=== PATIENT | female | born 1970 | race Caucasian/White ===

== ENCOUNTER 2020-07-01 10:58 | Emergency (ER) | payer OTHER, SELFPAY ==
--- NOTE | ~2020-07-01 | XR_ITS ---
EXAMINATION: XR chest 1V portable 07/01/2020 11:40 INDICATION: Cough PROCEDURE: AP portable chest COMPARISON: No prior studies for comparison. FINDINGS: The lungs are clear. The cardiomediastinal silhouette is within normal limits. There are no pleural effusions. There is no pneumothorax suspected. IMPRESSION: 1: NO ACUTE CARDIOPULMONARY DISEASE. Reviewed, dictated and finalized at location B. 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
[2020-07-01 11:11] VITALS: BP 137/83; PULSE 94; RESP 18; TEMP 36.4; O2SAT 100
--- NOTE | 2020-07-01 11:53 | ED.GENADULT ---
HPI - General Adult General Chief complaint: Upper Respiratory Infection <Jaren Dalton PA-C - Last Filed: 07/01/20 12:08> Stated complaint: Sick for a week COVID - maybe sinus <TAMARA Campos Last Filed: 07/01/20 12:08> Time Seen by Provider: 07/01/20 11:20 <Jaren Dalton PA-C - Last Filed: 07/01/20 12:08> Source: patient <TAMARA Campos Last Filed: 07/01/20 12:08> Mode of arrival: ambulatory <TAMARA Campos Last Filed: 07/01/20 12:08> Limitations: no limitations <TAMARA Campos Last Filed: 07/01/20 12:08> History of Present Illness HPI narrative: Patient presents with chief complaint of sinus pain, congestion in dark green discharge over the past 2 weeks. Patient states she has noticed some improvement when she takes sinus pills however states she has been taking them for 2 weeks she feels that there is something further going on causing her symptoms. Patient states she has tested negative for Covid twice over the past 2 weeks. She reports she does have slight cough on occasion. Patient denies fever, chills, nausea, vomiting, diarrhea. Patient denies any other emergent symptoms. <Jaren Dalton PA-C - Last Filed: 07/01/20 12:08> Related Data Allergies/adverse reactions: Allergies Allergy/AdvReac Type Severity Reaction Status Date / Time No Known Allergies Allergy Verified 07/01/20 11:19 <Jaren Dalton PA-C - Last Filed: 07/01/20 12:08> Review of Systems Review of Systems: Narrative: CONSTITUTIONAL: Denies fever, chills, or sweats. EYES: Denies visual changes, redness, or discharge. ENT: Reports sinus pain, congestion, sinus drainage denies rhinorrhea, sore throat, or otalgia. CARDIOVASCULAR: Denies chest pain, palpitations, or edema. RESPIRATORY: Reports intermittent dry cough denies dyspnea. GASTROINTESTINAL: Denies abdominal pain, nausea, vomiting, or diarrhea. GENITOURINARY: Denies dysuria or hematuria. SKIN: Denies rash or itching. MUSCULOSKELETAL: Denies back pain, myalgia, or joint pain NEUROLOGIC: Denies headache, numbness, dizziness, or weakness. PSYCHIATRIC: Denies anxiety or depression. <Jaren Dalton PA-C - Last Filed: 07/01/20 12:08> Exam Narrative: Exam Narrative: GENERAL: Well-appearing, well-nourished, and in no acute distress. HEAD: Normocephalic, atraumatic. EYES: PERRLA and EOMI. ENT: Mucous membranes moist. Oropharynx without tonsillar hypertrophy exudate or other lesions. Bilateral TMs pearly sepulveda nonbulging. Maxillary sinus tenderness to palpation. Sinuses inflamed and irritated. The green discharge noted to the nasal cavities. NECK: Supple. No adenopathy or masses. No carotid bruits or JVD CHEST: Clear to auscultation. No respiratory distress. No wheezes rales or rhonchi HEART: Regular rate and rhythm. No murmur heard. Normal peripheral pulses. ABDOMEN: Soft, nontender, nondistended, normal active bowel sounds. EXTREMITIES: Normal range of motion. No edema. SKIN: Warm, dry, no rash. NEURO: No focal deficits. Alert and oriented x3. PSYCH: Normal mood and affect. <Jaren Dalton PA-C - Last Filed: 07/01/20 12:08> Course Vital Signs Vital signs: Vital Signs Temperature 97.6 F 07/01/20 11:11 Pulse Rate 94 07/01/20 11:11 Respiratory Rate 18 07/01/20 11:11 Blood Pressure 137/83 07/01/20 11:11 Pulse Oximetry 100 07/01/20 11:11 Temperature 97.6 F 07/01/20 11:11 Pulse Rate 94 07/01/20 11:11 Respiratory Rate 18 07/01/20 11:11 Blood Pressure 137/83 07/01/20 11:11 Pulse Oximetry 100 07/01/20 11:11 <Jaren Dalton PA-C - Last Filed: 07/01/20 12:08> Vital Signs Temperature 97.6 F 07/01/20 11:11 Pulse Rate 94 07/01/20 11:11 Respiratory Rate 18 07/01/20 11:11 Blood Pressure 137/83 07/01/20 11:11 Pulse Oximetry 100 07/01/20 11:11 Temperature 97.6 F 07/01/20 11:11 Pulse Rate 94 07/01/20 11:11 Respiratory Rate 18 12/
== END 2020-07-01 12:28 | disposition home or self-care (01) ==
PROVIDERS: Emergency Provider General Practice
DX: J01.00 Acute maxillary sinusitis, unspecified (principal)
CPT/HCPCS: 71045; 99283

== ENCOUNTER 2020-07-17 13:22 | Emergency (ER) | payer OTHER, SELFPAY ==
--- NOTE | ~2020-07-17 | XR_ITS ---
XR foot LT min 3V 07/17/2020 14:20 INDICATION: Left foot pain PROCEDURE: 4 views left foot COMPARISON: No prior studies for comparison. FINDINGS: Fracture, dislocation or subluxation is not identified. Lisfranc joint intact. The soft tis sues appear within normal limits. No foreign bodies are identified. IMPRESSION: 1: NO ACUTE BONE OR JOINT ABNORMALITY IDENTIFIED. Reviewed, dictated and finalized at location A. METRIC TECHNOLOGIST
[2020-07-17 13:30] VITALS: BP 133/78; PULSE 83; RESP 16; TEMP 36; O2SAT 98
--- NOTE | 2020-07-17 14:18 | ED.GENADULT ---
HPI - General Adult General Chief complaint: Extremity Problem,Nontraumatic Stated complaint: L HEEL PAIN, VAG D/C Time Seen by Provider: 07/17/20 13:50 Source: patient Mode of arrival: ambulatory Limitations: no limitations History of Present Illness HPI narrative: 50 years old white female complaining of pain at the left heel and the bottom of the left foot started 2 to 3 weeks ago. 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 Patient denies any trauma. The pain is burning, gradual onset, medial side of the heel. Patient also complaining of vaginal discharge consistent with her previous history of bacterial vaginosis. Patient declined any vaginal exam. She would like a course of antibiotic to take care of the infection. Patient denies any fever, chills, nausea, vomiting. Related Data Home Medications Medication Instructions Recorded Confirmed folic acid 07/17/20 Allergies Allergy/AdvReac Type Severity Reaction Status Date / Time No Known Allergies Allergy Verified 07/17/20 14:09 Review of Systems Review of Systems: Narrative: CONSTITUTIONAL: Denies fever, chills, or sweats. EYES: Denies visual changes, redness, or discharge. ENT: Denies rhinorrhea, congestion, sore throat, or otalgia. CARDIOVASCULAR: Denies chest pain, palpitations, or edema. RESPIRATORY: Denies cough or dyspnea. GASTROINTESTINAL: Denies abdominal pain, nausea, vomiting, or diarrhea. GENITOURINARY: Denies dysuria or hematuria. SKIN: Denies rash or itching. MUSCULOSKELETAL: Denies back pain, joint pain, or myalgia. NEUROLOGIC: Denies headache, numbness, or weakness. PSYCHIATRIC: Denies anxiety or depression. [facility] Past Medical History Medical History (Updated 07/17/20 @ 14:30 by Chucho Baez MD) Obesity Social History Social History Gender identity (if verbalized by the patient): Female Exam Narrative: Exam Narrative: General appearance: Well-developed, well-nourished Skin: Normal color Chest and respiratory: Airway patent, no respiratory distress, no accessory muscle use Heart: Regular rate/rhythm Abdomen: Soft, nontender, no organomegaly, quiet bowel sounds Vascular: Normal peripheral pulses, normal capillary refill. Musculoskeletal: Left foot showed no abnormality, severe tenderness at the heel area mainly at the medial side of the calcaneus, no bruises, no swelling, no rash. No deformity. Neurologic: Alert and oriented ?3, SERVICE AGENT is normal as tested, no gross motor deficit Course Course Emergency Course: Stable Vital Signs Vital signs: Vital Signs Temperature 36.0 C L 07/17/20 13:30 Pulse Rate 83 07/17/20 13:30 Respiratory Rate 16 07/17/20 13:30 Blood Pressure 133/78 07/17/20 13:30 Pulse Oximetry 98 07/17/20 13:30 Temperature 36.0 C L 07/17/20 13:30 Pulse Rate 83 07/17/20 13:30 Respiratory Rate 16 07/17/20 13:30 Blood Pressure 133/78 07/17/20 13:30 Pulse Oximetry 98 07/17/20 13:30 Medical Decision Making MDM Narrative Medical decision making narrative: Plantar fasciitis is my concern. Patient also complaining of vaginal discharge consistent with her previous history of bacterial vaginosis. Also telling me that she have cottage cheese discharge which could be candidiasis. The plan to treat both. Differential Diagnosis Differential Diagnosis: Plantar fasciitis, left foot sprain/strain, bacterial vaginosis, candidiasis/vagina. Vital Signs Vital Signs: Vital Signs Temperature 36.0 C L 07/17/20 13:30 Pulse Rate 83 07/17/20 13:30 Respiratory Rate 16 07/17/20 13:30 Blood Pressure 133/78 07/17/20 13:30 Pulse Oximetry 98 07/17/20 13:30 Temperature 36.0 C L 07/17/20 13:30 Pulse Rate 83 07/17/20 13:30
[2020-07-17 14:53] VITALS: BP 148/98; PULSE 94; RESP 16; TEMP 37.3; O2SAT 98
== END 2020-07-17 14:56 | disposition home or self-care (01) ==
PROVIDERS: Emergency Provider Emergency Medicine
DX: M72.2 Plantar fascial fibromatosis (principal); N76.0 Acute vaginitis; E66.9 Obesity, unspecified; Z68.33 Body mass index [BMI] 33.0-33.9, adult
CPT/HCPCS: 73630; 99283

== ENCOUNTER 2020-09-20 13:13 | Emergency (ER) | payer OTHER, SELFPAY ==
--- NOTE | ~2020-09-20 | CT_ITS ---
EXAMINATION: CT brain wo con INDICATION: Frontal headache COMPARISON: None TECHNIQUE: Standard unenhanced head CT. The dose-length product (DLP) was 605.33 mGy-cm. The mA was a djusted according to patient size. Iterative reconstruction technique was employed. FINDINGS: There is no intracranial hemorrhage, acute infarction, or abnormal mass lesion. The ventric les are normal. There is no abnormal mass effect or midline shift. The sepulveda-white matter differentiat ion is normal. The basal cisterns are patent. The orbits are normal. The paranasal sinuses, mastoids and calvarium are normal. IMPRESSION: 1. No acute intracranial abnormality. Reviewed, dictated and finalized at location A. UATE ADVISOR
[2020-09-20 13:20] VITALS: BP 129/75; PULSE 71; RESP 18; TEMP 36.2; O2SAT 99
--- NOTE | 2020-09-20 13:38 | ED.GENADULT ---
HPI - General Adult General Chief complaint: Headache Stated complaint: headache, arm numbness Time Seen by Provider: 09/20/20 13:19 Source: patient Mode of arrival: ambulatory Limitations: no limitations History of Present Illness HPI narrative: Patient wok-up 1 hour ago from sleep with left frontal headache, left neck pain and left upper extremity numbness. The numbness resolved in few minutes, but patient still having pain at left forehead and left side of neck. Patient received aspirin at home prior to arrival. Patient denies any nausea, vomiting, vision change, chest pain, shortness of breath, back pain. Patient also complaining of left lower dental pain for the last few days and slightly swollen. 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 Related Data Allergies Allergy/AdvReac Type Severity Reaction Status Date / Time No Known Allergies Allergy Verified 09/20/20 13:24 Review of Systems Review of Systems: Narrative: CONSTITUTIONAL: Denies fever, chills, or sweats. EYES: Denies visual changes, redness, or discharge. ENT: Denies rhinorrhea, congestion, sore throat, or otalgia. CARDIOVASCULAR: Denies chest pain, palpitations, or edema. RESPIRATORY: Denies cough or dyspnea. GASTROINTESTINAL: Denies abdominal pain, nausea, vomiting, or diarrhea. GENITOURINARY: Denies dysuria or hematuria. SKIN: Denies rash or itching. MUSCULOSKELETAL: Denies back pain, joint pain, or myalgia. NEUROLOGIC: Denies headache, numbness, or weakness. PSYCHIATRIC: Denies anxiety or depression. PMFSH Past Medical History Medical History Obesity Social History Social History Gender identity (if verbalized by the patient): Female Exam Narrative: Exam Narrative: General appearance: Well-developed, well-nourished Skin: Normal color Head: Normocephalic, nontraumatic Eyes: Clear conjunctiva ENT: Oropharynx normal, ears normal, nose normal, left lower gum showed 2 broken teeth surrounded with erythematous swelling gum, no abscess Neck: Supple, slight tenderness left side of neck, no mass, no lymphadenopathy, no rash, no swelling. Chest and respiratory: Airway patent, no respiratory distress, no accessory muscle use Heart: Regular rate/rhythm Abdomen: Soft, nontender, no organomegaly, quiet bowel sounds Vascular: Normal peripheral pulses, normal capillary refill. Musculoskeletal: Normal range of motion, nontender back Neurologic: Alert and oriented ?3, CLIENT SERVER DEVELOPER is normal as tested, no gross motor deficit Course Course Emergency Course: Stable Vital Signs Vital signs: Vital Signs Temperature 36.2 C L 09/20/20 13:20 Pulse Rate 71 09/20/20 13:20 Respiratory Rate 18 09/20/20 13:20 Blood Pressure 129/75 09/20/20 13:20 Pulse Oximetry 99 09/20/20 13:20 Temperature 36.2 C L 09/20/20 14:20 Pulse Rate 71 09/20/20 13:20 Respiratory Rate 18 09/20/20 13:20 Blood Pressure 129/75 09/20/20 13:20 Pulse Oximetry 99 09/20/20 13:20 Medical Decision Making MDM Narrative Medical decision making narrative: Patient presents with left frontal headache and left neck pain. Neck sprain/sprain high likely secondary to positioning high likely the underlying cause. CT head ordered. Patient declined to take any pain medication, requested Tylenol. Dental exam showed dental infection, patient will be discharged on antibiotic. Differential Diagnosis Differential Diagnosis: Headache, neck strain/sprain, dental infection Vital Signs Vital Signs: Vital Signs Temperature 36.2 C L 09/20/20 13:20 Pulse Rate 71 09/20/20 13:20 Respiratory
[2020-09-20] MEDS: ACETAMINOPHEN 500 MG TABLET 1000 MG PO (13:50)
[2020-09-20] MEDS: hydrOXYzine pamoate 25 MG CAPSULE 50 MG PO (13:51)
[2020-09-20 14:20] VITALS: TEMP 36.2
== END 2020-09-20 14:49 | disposition home or self-care (01) ==
PROVIDERS: Emergency Provider Emergency Medicine
DX: R51.9 Headache, unspecified (principal); K04.7 Periapical abscess without sinus
CPT/HCPCS: 70450; 99284; A9270

== ENCOUNTER 2020-10-03 09:49 | Emergency (ER) | payer OTHER, SELFPAY ==
[2020-10-03 09:53] VITALS: BP 119/76; PULSE 88; RESP 18; TEMP 37.1; O2SAT 98
[2020-10-03 10:16] LABS: Add Urine Microscopic? NO; Appearance Urine Clear (Clear); Bilirubin Urine Negative (Negative); Blood Urine Negative (Negative); Color Urine Yellow (Yellow); Glucose Urine UA Negative (Negative); Ketones Urine Negative (Negative); Leukocyte Esterase Ur Negative LEU/UL (Negative); Mucus Urine Rare /lpf; Nitrate Urine Negative (Negative); Protein Urine Negative (Negative); RBC Urine 0-2 /hpf (0-2); Specific Grav Ur 1.023 (1.001-1.035); Squamous Epithelial Cell Urine Few /hpf (Few); Urobilinogen Urine Negative mg/dL (<2.0); WBC Urine 0-3 /hpf
[2020-10-03 10:29] LABS: Basophils Percent Auto 0.2 % (0.2-1.2); Eosinophils Absolute Auto 0.1 K/mm3 (0-0.3); Eosinophils Percent Auto 0.9 % (0-4.4); Hematocrit 40.5 % (37.0-47.0); Hemoglobin 13.1 g/dL (12.0-15.0); Immature Granulocyte Absolute 0.03 K/mm3 (0.00-0.031); Immature Granulocyte Percent A 0.4 % (0-0.5); Lymphocytes Absolute Auto 1.24 K/mm3 (0.9-3.2); Lymphocytes Percent Auto 15.5 % (18.3-44.2); Mean Corpuscular HGB Conc 32.3 g/dl (32-36); Mean Corpuscular Hemoglobin 29.1 pg (26-34); Mean Platelet Volume 9.9 fl (7.4-10.4); Monocytes Absolute Auto 0.5 K/mm3 (0.1-0.6); Monocytes Percent Auto 6.2 % (2.6-8.5); Neutrophils Absolute Auto 6.2 K/mm3 (1.3-6.7); Neutrophils Percent Auto 76.8 % (45.5-73.1); Platelet Count Result 338 k/mm3 (150-375); Red Cell Distribution Width 13.6 % (11.5-14.5)
--- NOTE | 2020-10-03 10:32 | ED.FEMALEGU ---
HPI - Female Genitourinary General Chief complaint: Urogenital-Female Stated complaint: UTI Time Seen by Provider: 10/03/20 10:10 Source: patient Mode of arrival: ambulatory Limitations: no limitations History of Present Illness HPI Narrative: This is a 50-year-old female that presents the emergency department for dysuria x4 days. Also reports frequency. Does report she is currently on antibiotics for dental infection. Denies fever, vomiting, hematuria, or abnormal discharge. Related Data Allergies Allergy/AdvReac Type Severity Reaction Status Date / Time No Known Allergies Allergy Verified 10/03/20 09:58 Review of Systems Review of Systems: Narrative: CONSTITUTIONAL: Denies fever GASTROINTESTINAL: Denies abdominal pain, nausea, vomiting GENITOURINARY: Reports dysuria. Denies hematuria. SKIN: Denies rash or itching. All systems reviewed & are unremarkable except as noted in HPI and below PMFSH Past Medical History Medical History Obesity Social History Social History (Updated 10/03/20 @ 11:59 by Nataly Yusuf PA-C) Smoking status: Former smoker Gender identity (if verbalized by the patient): Female Exam Narrative: Exam Narrative: GENERAL: Well-appearing, well-nourished, and in no acute distress. HEAD: Normocephalic, atraumatic. EYES: EOMI. CHEST: Clear to auscultation. No respiratory distress. No wheezes rales or rhonchi HEART: Regular rate and rhythm. No murmur heard. Normal peripheral pulses. ABDOMEN: Soft, nontender, nondistended, normal active bowel sounds. No CVA tenderness EXTREMITIES: Normal range of motion. No edema. SKIN: Warm, dry, no rash. NEURO: No focal deficits. Alert and oriented x3. PSYCH: Normal mood and affect PELVIC: Normal external genitalia. Normal-appearing cervix, no cervical motion tenderness Course Vital Signs Vital signs: Vital Signs Temperature 98.7 F 10/03/20 09:53 Pulse Rate 88 10/03/20 09:53 Respiratory Rate 18 10/03/20 09:53 Blood Pressure 119/76 10/03/20 09:53 Pulse Oximetry 98 10/03/20 09:53 Temperature 98.7 F 10/03/20 09:53 Pulse Rate 88 10/03/20 09:53 Respiratory Rate 18 03/05/21 09:53 Blood Pressure 119/76 10/03/20 09:53 Pulse Oximetry 98 10/03/20 09:53 MDM - Female Genitourinary MDM Narrative Medical decision making narrative: Patient presents the emergency department for dysuria. She is afebrile and nontoxic-appearing. CBC and metabolic panel without concerning findings. UA is without evidence of infection. Trichomonas was negative. Chlamydia, gonorrhea and genital culture were sent. She does not want to be presumptively treated. Bedside test is negative. Pelvic exam is benign. Patient is currently on antibiotics. Will be treated for yeast infection in case this is possibly the cause of her discomfort. Otherwise was instructed to follow-up with gynecology for further results and management. She is stable and felt appropriate for further outpatient evaluation. She was given warnings to return to the ER Lab Data Attestation: I reviewed the patient's lab results. Result diagrams: 10/03/20 10:22 10/03/20 10:22 Labs: Lab Results 10/03/20 10/03/20 10/03/20 Range/Units 10:03 10:22 10:22 WBC 8.0 (4.5-10.0) K/mm3 RBC 4.50 (4.2-5.4) M/mm3 Hgb 13.1 (12.0-15.0) g/dL Hct 40.5 (37.0-47.0) % MCV 90.0 (80-100) fl MCH 29.1 (26-34) pg MCHC 32.3 (32-36) g/dl RDW 13.6 (11.5-14.5) % Plt Count 338 (150-375) k/mm3 MPV 9.9 (7.4-10.4) fl Immature Gran % (Auto) 0.4 (0-0.5) % Neut % (Auto) 76.8 H (45.5-73.1) % Lymph % (Auto) 15.5 L (18.3-44.2) % Chase % (Auto) 6.2 (2.6-8.5) % Eos % (Auto) 0.9 (0-4.4) % Baso % (Auto) 0.2 (0.2-1.2) % Lymph # (Auto) 1.24 (0.9-3.2) K/mm3 Chase # (Auto) 0.5 (0.1-0.6) K/mm3 Eos # (Auto) 0.1 (0-0.3) K/mm3 Baso # (A
[2020-10-03 10:44] LABS: Alanine Aminotransferase 15 U/L (4-35); Alkaline Phosphatase 62 U/L (38-126); Anion Gap 2 mmol/L (8-16); Aspartate Amino Transferase 27 U/L (14-36); Bilirubin,Total 0.7 mg/dL (0.2-1.3); Blood Urea Nitrogen 12 mg/dL (7-17); Calcium 9.1 mg/dL (8.4-10.2); Carbon Dioxide 29 mmol/L (22-30); Chloride 107 mmol/L (98-107); Estimated CRCL calculation 112 ml/min; Estimated Glomerular Filt Rate > 60; Glucose 107 mg/dL (65-105); Lipase 60 U/L (23-300); Potassium 4.1 mmol/L (3.4-5.0); Sodium 138 mmol/L (137-145)
[2020-10-03] MEDS: FLUCONAZOLE 150 MG TABLET PO (12:12)
== END 2020-10-03 12:46 | disposition home or self-care (01) ==
PROVIDERS: Physician Assistant; Emergency Provider Emergency Medicine
DX: R30.0 Dysuria (principal); E66.9 Obesity, unspecified; Z68.32 Body mass index [BMI] 32.0-32.9, adult
CPT/HCPCS: 36415; 80053; 81003; 81025; 83690; 85025; 87070; 87077; 87491; 87591; 87808; 99284; A9270

== ENCOUNTER 2020-10-19 23:15 | Emergency (ER) | payer OTHER, SELFPAY ==
[2020-10-19 23:18] VITALS: BP 125/71; PULSE 86; RESP 18; TEMP 36.2; O2SAT 100
--- NOTE | 2020-10-20 00:13 | ED.BACK ---
HPI - Back Pain/Injury General Chief Complaint: Back Pain/Injury Stated Complaint: back pain & abscess tooth Time Seen by Provider: 10/19/20 23:51 Source: RN notes reviewed History of Present Illness HPI Narrative: Patient presents emergency department from home for multiple complaints. Patient states that this morning she was getting ready to going to work when she had dropped her keys and bent over in the car feeling pulling and pain in her left lower back states since that time stabbing her left lower back that is worse when she stands straight upright she denies any direct trauma or injury to her back she states the pain does not radiate she denies any fevers or chills abdominal pain bowel or bladder incontinence or any other symptoms states she is not anything for the pain. Patient also states that she has a abscess right upper molar tooth that she says she was scheduled to see dentist not got pushed back to November 12 states that the tooth has been tender to palpation with some swelling of the gum she denies any drainage from the gum states she does have numerous carious teeth with several teeth need to be pulled Related Data Allergies Allergy/AdvReac Type Severity Reaction Status Date / Time No Known Allergies Allergy Verified 10/03/20 09:58 Review of Systems Review of Systems: Narrative: Gen.: Denies fevers or chills Eyes: Denies eye pain or visual change ENT: See HPI Respiratory: Denies shortness of breath or cough CV: Denies chest pain or palpitations GI: Denies abdominal pain nausea, emesis or diarrhea denies burning, urgency, frequency or hematuria denies bowel or bladder incontinence Musculoskeletal: See HPI Neuro: Denies numbness, tingling, weakness or focal weakness Skin: Denies rash Except as documented, all other systems reviewed and negative PMF Past Medical History Medical History Obesity Social History Social History Smoking status: Former smoker Gender identity (if verbalized by the patient): Female Exam Narrative: Exam Narrative: APPEARANCE: No acute distress, nontoxic, resting in bed Eyes: EOMI HEENT: Normocephalic, atraumatic, TMs clear bilaterally nares patent, no erythema exudate posterior pharynx airway patent, numerous carious teeth, tooth #2 is carious down to the gum and tender to palpation with inflammation of the gum no drainage there is no overlying swelling or erythema of the cheek CV: Regular rate and rhythm without murmur RESPIRATORY: No respiratory distress. Clear to auscultation bilaterally. Abdomen: Soft and nontender, no rebound or guarding MUSCULOSKELETAl: Moves all extremities, no clubbing cyanosis or edema Back: No midline lumbar tenderness to palpation or step-off, tender to palpation over bilateral paravertebral muscles L3-5 , pain increased with forward flexion NEURO: Awake and alert. Following commands, speech normal, no focal deficits, muscle strength 5 out of 5 bilateral lower extremities, bilateral patellar reflex 2+ SKIN:: Warm, dry. Normal Color no rash or lesions Course Course Emergency Course: Discussed with patient results of workup and diagnosis. Discussed need for follow-up with primary care, proper use of medication, and reasons to return to the emergency department. Patient understands and agrees to current treatment plan Vital Signs Vital signs: Vital Signs Temperature 97.2 F L 10/19/20 23:18 Pulse Rate 86 10/19/20 23:18 Respiratory Rate 18 10/19/20 23:18 Blood Pressure 125/71 10/19/20 23:18 Pulse Oximetry 100 10/19/20 23:18 Temperature 97.2 F L 10/19/20 23:18 Pulse Rate 86 10/19/20 23:18 Respiratory Rate 18 10/19/20 23:18 Blood Pressure 125/71 10/19/20 23:18 Pulse Oximetry 100 10/19/20 23:18 MDM - Back Pain/Injury MDM Narrative Medical decision making narrative: Patient?s pain is positional and localized t
[2020-10-20] MEDS: PENICILLIN V POTASSIUM 250 MG TABLET 500 MG PO (00:28)
[2020-10-20] MEDS: IBUPROFEN 600 MG TABLET PO (00:28)
== END 2020-10-20 00:59 | disposition home or self-care (01) ==
PROVIDERS: Emergency Provider Emergency Medicine
DX: M54.5 Low back pain (principal); K04.7 Periapical abscess without sinus; E66.9 Obesity, unspecified; Z68.32 Body mass index [BMI] 32.0-32.9, adult; Z87.891 Personal history of nicotine dependence
CPT/HCPCS: 99283; A9270

== ENCOUNTER 2020-11-08 10:02 | Emergency (ER) | payer OTHER, SELFPAY ==
[2020-11-08 10:15] VITALS: BP 141/79; PULSE 92; RESP 18; TEMP 36; O2SAT 96
--- NOTE | 2020-11-08 11:41 | ED.GENADULT ---
HPI - General Adult General Chief complaint: Dental/Oral <TAMARA Rutherford Last Filed: 11/08/20 12:03> Stated complaint: dental issues-headache <TAMARA Rutherford Last Filed: 11/08/20 12:03> Time Seen by Provider: 11/08/20 11:30 <TAMARA Rutherford Last Filed: 11/08/20 12:03> History of Present Illness HPI narrative: Left sided dental pain and swelling. Has a dentist appt upcoming. Frontal MEI. Seems to be worse with certain positions. Mild sinus congestion. Taking tylenol and ibuprofen with minimal reflief. Just finished a course of penicllin about a week. Says that the penicillin did not help at all. Pain is only present with eating certain things, drinking certain things and being exposed to cold air. Also says that she has a bacterial infection down there that started 2-3 days ago. Says she is having cottage cheese discharge but also fishy odor. Has tried the ora gel that did not help either. No chance of . Has chronic dental issues. 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 <TAMARA Rutherford Last Filed: 11/08/20 12:03> Related Data Allergies/adverse reactions: Allergies Allergy/AdvReac Type Severity Reaction Status Date / Time No Known Allergies Allergy Verified 11/08/20 10:22 <TAMARA Rutherford Last Filed: 11/08/20 12:03> Review of Systems Constitutional: Constitutional: Reports as per HPI, Denies fever(s), Denies night sweats and Denies weakness <TAMARA Rutherford Last Filed: 11/08/20 12:03> Eyes: Eyes: Reports as per HPI <TAMARA Rutherford Last Filed: 11/08/20 12:03> ENT: Reports system reviewed and no additional complaints, except as documented and Reports dental pain <TAMARA Rutherford Last Filed: 11/08/20 12:03> Comments: See HPI for dental pain and sinus congestion and frontal MEI. <TAMARA Rutherford Last Filed: 11/08/20 12:03> Cardiovascular: Cardiovascular: Denies chest pain, Denies edema, Denies leg edema, Denies dyspnea and Denies orthopnea <Bear MorenoTAMARA - Last Filed: 11/08/20 12:03> Respiratory: Respiratory: Denies cough and Denies dyspnea <Bear MorenoLESLEIC - Last Filed: 11/08/20 12:03> Gastrointestinal: Gastrointestinal: Denies abdominal pain, Denies constipation, Denies diarrhea, Denies nausea and Denies vomiting <Bear MorenoTAMARA - Last Filed: 11/08/20 12:03> Musculoskeletal: Musculoskeletal: Denies abnormal gait, Denies back pain, Denies numbness and Denies tingling <Bear MorenoTAMARA - Last Filed: 11/08/20 12:03> Neurologic: Denies Abnormal speech present, Denies abnormal gait, Denies numbness, Denies tingling and Denies weakness <Bear MorenoTAMARA - Last Filed: 11/08/20 12:03> Psychiatric: Psychiatric: Denies homicidal ideation and Denies suicidal ideation <Bear FooteTAMARA dan Last Filed: 11/08/20 12:03> [facility] Past Medical History Medical History: Medical History Obesity <Bear FooteTAMARA dan Last Filed: 11/08/20 12:03> Social History Social History: Social History Smoking status: Former smoker Gender identity (if verbalized by the patient): Female <Bear FooteTAMARA dan Last Filed: 11/08/20 12:03> Exam Const: General: cooperative, healthy appearing, comfortable, no acute distress, well developed, alert, awake and Physically active <Bear FooteTAMARA dan Last Filed: 11/08/20 12:03> Orientation/consciousness: patient oriented x3 <Bear CrenshawAntonio Moreno PA-C - Last Filed: 11/08/20 12:03> HENMT: Head: normal to inspection, normocephalic and atraumatic <TAMARA Rutherford Last Filed: 11/08/20 12:03> Ears: external ears normal <TAMARA Rutherford Last Filed: 11/08/20 12:03> General nose exam: Normal external nose present <S
[2020-11-08] MEDS: methylPREDNISolone SOD SUCC 125 MG VIAL IM (12:09)
== END 2020-11-08 12:11 | disposition home or self-care (01) ==
PROVIDERS: Emergency Provider General Practice; PCP Family Medicine
DX: K04.01 Reversible pulpitis (principal); N76.0 Acute vaginitis; E66.9 Obesity, unspecified; Z68.32 Body mass index [BMI] 32.0-32.9, adult; Z98.84 Bariatric surgery status
CPT/HCPCS: 96372; 99283; J2930

== ENCOUNTER 2020-11-26 11:25 | Emergency (ER) | payer OTHER, SELFPAY ==
--- NOTE | ~2020-11-26 | XR_ITS ---
EXAMINATION: XR chest 1V portable 11/26/2020 12:25 INDICATION: Cough without fever PROCEDURE: AP portable chest COMPARISON: 07/01/2020 FINDINGS: The lungs are clear. The cardiomediastinal silhouette is within normal limits. There are no pleural effusions. There is no pneumothorax suspected. IMPRESSION: 1: NO ACUTE CARDIOPULMONARY DISEASE. Reviewed, dictated and finalized at location B.
[2020-11-26 11:31] VITALS: BP 129/82; PULSE 88; RESP 18; TEMP 36.7; O2SAT 99
[2020-11-26 11:59] LABS: Basophils Percent Auto 0.5 % (0.2-1.2); Eosinophils Absolute Auto 0.2 K/mm3 (0-0.3); Eosinophils Percent Auto 3.4 % (0-4.4); Hematocrit 38.3 % (37.0-47.0); Hemoglobin 12.3 g/dL (12.0-15.0); Immature Granulocyte Absolute 0.02 K/mm3 (0.00-0.031); Immature Granulocyte Percent A 0.3 % (0-0.5); Lymphocytes Absolute Auto 1.23 K/mm3 (0.9-3.2); Lymphocytes Percent Auto 20.9 % (18.3-44.2); Mean Corpuscular HGB Conc 32.1 g/dl (32-36); Mean Corpuscular Hemoglobin 29.6 pg (26-34); Mean Corpuscular Volume 92.3 fl (80-100); Mean Platelet Volume 9.7 fl (7.4-10.4); Monocytes Absolute Auto 0.4 K/mm3 (0.1-0.6); Monocytes Percent Auto 6.6 % (2.6-8.5); Neutrophils Percent Auto 68.3 % (45.5-73.1); Platelet Count Result 353 k/mm3 (150-375); Red Blood Count 4.15 M/mm3 (4.2-5.4); Red Cell Distribution Width 14.5 % (11.5-14.5); White Blood Count 5.9 K/mm3 (4.5-10.0)
[2020-11-26 12:09] LABS: Alanine Aminotransferase 15 U/L (4-35); Albumin Level 4.2 g/dL (3.5-5.1); Alkaline Phosphatase 61 U/L (38-126); Anion Gap 9 mmol/L (8-16); Aspartate Amino Transferase 25 U/L (14-36); Bilirubin,Total 0.4 mg/dL (0.2-1.3); Blood Urea Nitrogen 10 mg/dL (7-17); Calcium 8.8 mg/dL (8.4-10.2); Carbon Dioxide 25 mmol/L (22-30); Chloride 108 mmol/L (98-107); Estimated CRCL calculation 112 ml/min; Estimated Glomerular Filt Rate > 60; Glucose 117 mg/dL (65-105); Lipase 58 U/L (23-300); Potassium 3.3 mmol/L (3.4-5.0); Sodium 142 mmol/L (137-145)
[2020-11-26 12:50] LABS: Add Urine Microscopic? YES; Appearance Urine Cloudy (Clear); Bilirubin Urine Negative (Negative); Blood Urine 3+ (Negative); Color Urine Yellow (Yellow); Glucose Urine UA Negative (Negative); Ketones Urine Negative (Negative); Leukocyte Esterase Ur Negative LEU/UL (Negative); Mucus Urine Few /lpf; Nitrate Urine Negative (Negative); Protein Urine 1+ mg/dL (Negative); RBC Urine >75 /hpf (0-2); Specific Grav Ur 1.018 (1.001-1.035); Squamous Epithelial Cell Urine Many /hpf (Few); Urobilinogen Urine Negative mg/dL (<2.0)
[2020-11-26 13:21] VITALS: BP 136/83; PULSE 77; RESP 18; O2SAT 100
--- NOTE | 2020-11-26 13:32 | ED.GENADULT ---
HPI - General Adult General Chief complaint: Nausea/Vomiting/Diarrhea <Aiden Casey PA-C - Last Filed: 11/26/20 13:37> Stated complaint: headache, nausea <Aiden Casey PA-C - Last Filed: 11/26/20 13:37> Time Seen by Provider: 11/26/20 11:33 <Aiden Casey PA-C - Last Filed: 11/26/20 13:37> Source: patient and RN notes reviewed <Aiden Casey PA-C - Last Filed: 11/26/20 13:37> Mode of arrival: ambulatory <Aiden Casey PA-C - Last Filed: 11/26/20 13:37> Limitations: no limitations <Aiden Casey PA-C - Last Filed: 11/26/20 13:37> History of Present Illness HPI narrative: Patient is a 50-year-old male who presents to emergency department for evaluation of cough that is nonproductive for the last 2 days also noting some loose stools stating that her boyfriend did have a virus but does not believe it to have been Covid he was hospitalized for this. Patient had Covid in July and has had one vaccine. Patient denies any rectal bleeding or melena or vomiting. Patient notes she has been having some left lower tooth pain and has a follow-up with dentistry in the near future. Patient denies other URI symptoms and notes subjective fever with chills and body aches this morning <Aiden Casey PA-C - Last Filed: 11/26/20 13:37> Related Data Allergies/adverse reactions: Allergies Allergy/AdvReac Type Severity Reaction Status Date / Time No Known Allergies Allergy Verified 11/08/20 10:22 <Aiden Casey PA-C - Last Filed: 11/26/20 13:37> Review of Systems Review of Systems: All systems reviewed & are unremarkable except as noted in HPI and below <Aiden Casey PA-C - Last Filed: 11/26/20 13:37> PMFSH Past Medical History Medical History: Medical History (Updated 11/26/20 @ 13:35 by Aiden Casey PA-C) Obesity <Aiden Casey PA-C - Last Filed: 11/26/20 13:37> Surgical History Surgical History: Surgical History (Updated 11/26/20 @ 13:33 by Aiden Casey PA-C) H/O cosmetic surgery <Aiden Casey PA-C - Last Filed: 11/26/20 13:37> Social History Social History: Social History Smoking status: Former smoker Gender identity (if verbalized by the patient): Female <Aiden Casey PA-C - Last Filed: 11/26/20 13:37> Exam Narrative: Exam Narrative: GENERAL: Well-appearing, well-nourished, and in no acute distress. HEAD: Normocephalic, atraumatic. EYES: PERRLA and EOMI. ENT: Nares clear, no rhinorrhea or epistaxis. Mucous membranes moist. Patient with extracted tooth left lower molar with slight irritation around the tooth no drainage remainder of oropharynx is unremarkable oropharynx without tonsillar hypertrophy exudate or other lesions. Bilateral TMs pearly sepulveda nonbulging NECK: Supple. No adenopathy or masses. CHEST: Clear to auscultation. No respiratory distress. No wheezes rales or rhonchi HEART: Regular rate and rhythm. No murmur heard. Normal peripheral pulses. ABDOMEN: Soft, nontender, nondistended EXTREMITIES: Normal range of motion. No edema. SKIN: Warm, dry, no rash. NEURO: No focal deficits. Alert and oriented x3. Cranial nerves II through XII grossly intact PSYCH: Normal mood and affect. <Aiden Casey PA-C - Last Filed: 11/26/20 13:37> Course Course Emergency Course: Patient evaluated in the emergency department no high risk changes in the blood work or imaging was swabbed for Covid will follow with primary care was made aware that primary care will be necessary to get her results. Patient is afebrile nontoxic-appearing without emesis ABCs and vital signs intact and stable. Patient provided with reasons to return and agrees to do so if symptoms worsen <Aiden Casey PA-C - Last Filed: 11/26/20 13:37> Vital Signs Vital signs: Vital Signs Temperature 98.1 F 11/26/20 11:31 Pulse Rate 88 11/26/20 11
[2020-11-26 13:55] VITALS: BP 132/88; PULSE 75; RESP 18; O2SAT 100
[2020-11-27 17:06] LABS: SARS-CoV-2 RNA PCR Negative
== END 2020-11-26 13:51 | disposition home or self-care (01) ==
PROVIDERS: Emergency Medicine Emergency Medical Services; Emergency Provider General Practice; PCP Family Medicine
DX: J06.9 Acute upper respiratory infection, unspecified (principal); K04.7 Periapical abscess without sinus; Z20.822 Contact with and (suspected) exposure to COVID-19; Z86.16 Personal history of COVID-19; E66.9 Obesity, unspecified; Z68.33 Body mass index [BMI] 33.0-33.9, adult
CPT/HCPCS: 36415; 71045; 80053; 81001; 81025; 83690; 85025; 87086; 87088; 99283; C9803; U0003; U0005

== ENCOUNTER 2020-12-07 12:24 | Emergency (ER) | payer OTHER, SELFPAY ==
[2020-12-07 12:26] VITALS: BP 138/84; PULSE 81; RESP 18; TEMP 35.6; O2SAT 100
--- NOTE | 2020-12-07 12:58 | ED.BACK ---
HPI - Back Pain/Injury General Chief Complaint: Back Pain/Injury Stated Complaint: Lower Back Pain Time Seen by Provider: 12/07/20 12:36 Source: patient and RN notes reviewed Mode of arrival: ambulatory Limitations: no limitations and clinical condition History of Present Illness HPI Narrative: Patient is 50 years old white female presents to the ED with left lower back pain started 1 week ago, subsequently started radiating across the lower back. Patient works as [employer]ERSON[employer], been using ibuprofen without significant improvement. Get worse with certain movement, get better laying still. Patient denies any fever, chills, nausea, vomiting, abdominal pain, chest pain, urinary symptoms, vaginal bleeding or discharge. Related Data Allergies Allergy/AdvReac Type Severity Reaction Status Date / Time morphine AdvReac Nausea and Verified 12/07/20 12:30 Vomiting Review of Systems Review of Systems: Narrative: CONSTITUTIONAL: Denies fever, chills, or sweats. EYES: Denies visual changes, redness, or discharge. ENT: Denies rhinorrhea, congestion, sore throat, or otalgia. CARDIOVASCULAR: Denies chest pain, palpitations, or edema. RESPIRATORY: Denies cough or dyspnea. GASTROINTESTINAL: Denies abdominal pain, nausea, vomiting, or diarrhea. GENITOURINARY: Denies dysuria or hematuria. SKIN: Denies rash or itching. MUSCULOSKELETAL: Denies back pain, joint pain, or myalgia. NEUROLOGIC: Denies headache, numbness, or weakness. PSYCHIATRIC: Denies anxiety or depression. PMFSH Past Medical History Medical History Obesity Surgical History Surgical History H/O cosmetic surgery Social History Social History Smoking status: Former smoker Gender identity (if verbalized by the patient): Female Exam Narrative: Exam Narrative: General appearance: Well-developed, well-nourished Skin: Normal color Head: Normocephalic, nontraumatic Eyes: Clear conjunctiva ENT: Oropharynx normal, ears normal, nose normal Neck: Supple, nontender Chest and respiratory: Airway patent, no respiratory distress, no accessory muscle use Heart: Regular rate/rhythm Abdomen: Soft, nontender, no organomegaly, quiet bowel sounds Vascular: Normal peripheral pulses, normal capillary refill. Musculoskeletal: Slight limited range of motion across the lumbar area, slight tenderness with deep palpation of the left buttock. No swelling, no rash Neurologic: Alert and oriented ?3, OUTSOLE MOLDER is normal as tested, no gross motor deficit Course Course Emergency Course: Stable Vital Signs Vital signs: Vital Signs Temperature 35.6 C L 12/07/20 12:26 Pulse Rate 81 12/07/20 12:26 Respiratory Rate 18 12/07/20 12:26 Blood Pressure 138/84 12/07/20 12:26 Pulse Oximetry 100 12/07/20 12:26 Temperature 35.6 C L 12/07/20 12:26 Pulse Rate 81 12/07/20 12:26 Respiratory Rate 18 12/07/20 12:26 Blood Pressure 138/84 12/07/20 12:26 Pulse Oximetry 100 12/07/20 12:26 MDM - Back Pain/Injury MDM Narrative Medical decision making narrative: Musculoskeletal pain is my concern. 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 UA ordered to rule out any possibility for urinary tract infection Differential Diagnosis Differential diagnosis: Likely strain of lumbar region Lab Data Labs: Urine Characteristics Clear Critical Care Time Critical Care Time Critical Care Time: No Discharge Plan Discharge Clinical Impression: Strain of lumba
[2020-12-07] MEDS: KETOROLAC (*BKC) 60 MG/2 ML VIAL IM (13:13)
[2020-12-07 13:14] LABS: Add Urine Microscopic? NO; Appearance Urine Clear (Clear); Bilirubin Urine Negative (Negative); Blood Urine Negative (Negative); Color Urine Yellow (Yellow); Glucose Urine UA Negative (Negative); Ketones Urine Negative (Negative); Leukocyte Esterase Ur Negative LEU/UL (Negative); Nitrate Urine Negative (Negative); Protein Urine Negative (Negative); Specific Grav Ur 1.014 (1.001-1.035); Urobilinogen Urine Negative mg/dL (<2.0)
== END 2020-12-07 13:56 | disposition home or self-care (01) ==
PROVIDERS: Emergency Provider Emergency Medicine
DX: S39.012A Strain of muscle, fascia and tendon of lower back, initial encounter (principal); E66.9 Obesity, unspecified; Z68.32 Body mass index [BMI] 32.0-32.9, adult; Z87.891 Personal history of nicotine dependence; X58.XXXA Exposure to other specified factors, initial encounter
CPT/HCPCS: 81003; 96372; 99283; J1885

== ENCOUNTER → 2020-12-24 09:37 | Outpatient (CLI) | payer OTHER, SELFPAY ==
--- NOTE | ~2020-12-24 | XR_ITS ---
EXAMINATION: XR chest 2V DATE: 12/24/2020 10:03 INDICATION: Chest pain. Tobacco use. TECHNIQUE: Frontal and lateral views of the chest were obtained. COMPARISON: Chest single view 11/26/2020 FINDINGS: The chest demonstrates clear lungs without pneumonia, pleural effusion, or pneumothorax. Th e heart size is normal. There are surgical clips in the abdomen. IMPRESSION: 1. No acute cardiopulmonary disease. Reviewed, dictated and finalized at location B.
--- NOTE | ~2020-12-24 | XR_ITS ---
EXAMINATION: XR knee LT min 4V DATE: 12/24/2020 10:03 INDICATION: Left knee pain. TECHNIQUE: 4 views of left knee were obtained. COMPARISON: None. FINDINGS: Bone alignment is normal. No fracture. There is mild tricompartmental osteoarthritis. No kn ee joint effusion. IMPRESSION: 1. Mild left knee osteoarthritis. Reviewed, dictated and finalized at location B.
--- NOTE | ~2020-12-24 | XR_ITS ---
EXAMINATION: XR knee RT min 4V DATE: 12/24/2020 10:03 INDICATION: Right knee pain. TECHNIQUE: 4 views of right knee were obtained. COMPARISON: None. FINDINGS: Bone alignment is normal. No fracture. There is mild tricompartmental osteoarthritis. No kn ee joint effusion. IMPRESSION: 1. Mild right knee osteoarthritis. Reviewed, dictated and finalized at location B.
== END ==
PROVIDERS: PCP Emergency Medicine; Visit Provider Emergency Medicine
DX: R07.89 Other chest pain (principal); M17.0 Bilateral primary osteoarthritis of knee; Z72.0 Tobacco use
CPT/HCPCS: 71046; 73564

== ENCOUNTER 2021-01-02 12:53 | Emergency (ER) | payer OTHER, SELFPAY ==
[2021-01-02] VITALS (27 sets, daily range): BP systolic 128–156; BP diastolic 87–114; PULSE 68–92; RESP 12–21; TEMP 36.4; O2SAT 94–100
--- NOTE | 2021-01-02 13:09 | ECG_ITS ---
Measurements Intervals [place] Rate: 79 P: 33 MD: 155 QRS: 34 QRSD: 92 T: 31 QT: 383 QTc: 439 Interpretive Statements SINUS RHYTHM NORMAL ECG Electronically Signed On 01-02-2021 13:41:00 CDT by Sarthak Guo D.O.
[2021-01-02 13:29] LABS: Add Urine Microscopic? YES; Appearance Urine Cloudy (Clear); Bacteria Urine Trace /hpf; Bilirubin Urine Negative (Negative); Color Urine Yellow (Yellow); Glucose Urine UA Negative (Negative); Ketones Urine Negative (Negative); Leukocyte Esterase Ur 1+ LEU/UL (Negative); Mucus Urine Rare /lpf; Nitrate Urine Negative (Negative); Protein Urine Negative (Negative); RBC Urine 0-2 /hpf (0-2); Specific Grav Ur 1.011 (1.001-1.035); Squamous Epithelial Cell Urine Many /hpf (Few); Urobilinogen Urine Negative mg/dL (<2.0)
[2021-01-02 13:32] LABS: Alanine Aminotransferase 16 U/L (4-35); Alkaline Phosphatase 65 U/L (38-126); Anion Gap 9 mmol/L (8-16); Aspartate Amino Transferase 28 U/L (14-36); Bilirubin,Total 0.5 mg/dL (0.2-1.3); Blood Urea Nitrogen 6 mg/dL (7-17); Calcium 8.7 mg/dL (8.4-10.2); Carbon Dioxide 24 mmol/L (22-30); Chloride 108 mmol/L (98-107); Estimated CRCL calculation 133 ml/min; Estimated Glomerular Filt Rate > 60; Glucose 97 mg/dL (65-105); Potassium 3.8 mmol/L (3.4-5.0); Sodium 141 mmol/L (137-145)
[2021-01-02 13:34] LABS: Blood Urine Negative (Negative)
[2021-01-02 13:51] LABS: Basophils Percent Auto 0.3 % (0.2-1.2); Eosinophils Absolute Auto 0.2 K/mm3 (0-0.3); Eosinophils Percent Auto 2.4 % (0-4.4); Hematocrit 35.7 % (37.0-47.0); Hemoglobin 11.5 g/dL (12.0-15.0); Immature Granulocyte Absolute 0.02 K/mm3 (0.00-0.031); Immature Granulocyte Percent A 0.3 % (0-0.5); Lymphocytes Absolute Auto 1.49 K/mm3 (0.9-3.2); Lymphocytes Percent Auto 24.3 % (18.3-44.2); Mean Corpuscular HGB Conc 32.2 g/dl (32-36); Mean Corpuscular Hemoglobin 29.6 pg (26-34); Mean Platelet Volume 10.6 fl (7.4-10.4); Monocytes Absolute Auto 0.4 K/mm3 (0.1-0.6); Monocytes Percent Auto 7.2 % (2.6-8.5); Neutrophils Percent Auto 65.5 % (45.5-73.1); Platelet Count Result 344 k/mm3 (150-375); Red Blood Count 3.88 M/mm3 (4.2-5.4); Red Cell Distribution Width 13.5 % (11.5-14.5); White Blood Count 6.1 K/mm3 (4.5-10.0)
--- NOTE | 2021-01-02 14:01 | PC.NURSE ---
added on a TSH reflex. spoke to [place] in lab at [id number]
[2021-01-02] MEDS: PROCHLORPERAZINE EDISYLATE 10 MG/2 ML VIAL IV PUSH (14:47)
--- NOTE | 2021-01-02 14:53 | ED.HA ---
HPI - Headache General Chief Complaint: Headache Stated Complaint: MEI/Dizzy/Heart Racing Time Seen by Provider: 01/02/21 13:18 Source: patient Mode of arrival: ambulatory Limitations: no limitations History of Present Illness HPI Narrative: 50-year-old female She has several complaints Primarily she has had a frontal headache for about 3 days which she has been resistant to her attempts to treat it with once daily ibuprofen She does not have any other symptoms strictly associated with that no visual symptoms, no fever, no neck pain, no sinus or cold symptoms, no nausea or vomiting, no focal neuro symptoms She also has episodes which she describes as being hot in flashes, although she has not yet reported any irregular menstrual periods it does sound from her description like these might actually be vasomotor hot flashes She also felt some palpitations earlier today associated with 1 of those but this is all resolved now She recently saw her primary care doctor, reports that it kind of blood tests were done, and that she was treated with Macrobid for UTI She also has some discomfort at the top part of her butt/lower part of her back, but no swelling or drainage that she is noted from the area Related Data Allergies Allergy/AdvReac Type Severity Reaction Status Date / Time morphine AdvReac Nausea and Verified 01/02/21 13:07 Vomiting Review of Systems Review of Systems: All systems reviewed & are unremarkable except as noted in HPI and below Constitutional: Constitutional: Reports no additional constitutional complaints and Denies headache(s) Eyes: Eyes: Reports no additional eye complaints, Denies change in vision and Denies photophobia ENT: Denies headache(s), Denies nasal congestion and Denies sore throat Cardiovascular: Cardiovascular: Denies chest pain, Reports rapid heart rate and Denies dyspnea Respiratory: Respiratory: Denies cough and Denies dyspnea Gastrointestinal: Gastrointestinal: Denies abdominal pain, Denies diarrhea and Denies vomiting Genitourinary: Genitourinary: Denies urinary frequency and Reports dysuria Musculoskeletal: Musculoskeletal: Reports back pain, Denies deformity, Denies arthralgias, Denies joint swelling and Denies numbness Integumentary/Breasts: Skin/Breast: Denies rash and Denies wounds Neurologic: Denies dizziness, Reports headache(s), Denies focal weakness and Denies numbness Psychiatric: Psychiatric: Reports no additional psychiatric complaints Endocrine: Endocrine: Reports no additional endocrine complaints Hematologic/Lymphatic: Hematologic/Lymphatic: Reports no additional hematologic/lymphatic complaints Allergic/Immunologic: Allergic/Immunologic: Reports no additional allergic/immunologic complaints [facility] Past Medical History Medical History Obesity Surgical History Surgical History H/O cosmetic surgery Social History Social History Smoking status: Former smoker Gender identity (if verbalized by the patient): Female Exam Const: General: cooperative, healthy appearing, no acute distress and alert Orientation/consciousness: patient oriented x3 (alert) HENMT: Head: normal to inspection, normocephalic, atraumatic, no contusions and no hematomas Ears: external ears normal General nose exam: no epistaxis Face and sinus: sinuses nontender Mouth: Yes Normal oral and palatal mucosa present Eyes: Conjunctivae: conjunctivae normal EOM: EOMs intact bilaterally Neck: Neck: normal visual inspection, no meningeal signs, supple and no JVD Other: Supple Resp: Effort & Inspection: normal respiratory effort and not labored Auscultation: clear to auscultation bilaterally and other (BS =) Cardio: Rate: regular rate Rhythm: regular rhythm Heart sounds: no murmurs : General: Yes no CVA tenderness Back/S
--- NOTE | 2021-01-02 15:08 | PC.NURSE ---
Called lab at 1508 To add on TSH Per RN
== END 2021-01-02 16:48 | disposition home or self-care (01) ==
PROVIDERS: Emergency Provider Emergency Medicine; PCP Emergency Medicine
DX: R51.9 Headache, unspecified (principal); R23.2 Flushing; E66.9 Obesity, unspecified; Z68.33 Body mass index [BMI] 33.0-33.9, adult; Z87.891 Personal history of nicotine dependence
CPT/HCPCS: 36415; 80053; 81001; 81025; 84443; 85025; 87086; 93005; 96374; 96375; 99284; J0780; J1100

== ENCOUNTER 2021-01-22 20:31 | Emergency (ER) | payer OTHER, SELFPAY ==
[2021-01-22 20:42] VITALS: BP 126/85; PULSE 83; RESP 16; TEMP 36.6; O2SAT 99
--- NOTE | 2021-01-22 20:54 | ED.GENADULT ---
HPI - General Adult General Chief complaint: Wound/Laceration Stated complaint: wound on breast Time Seen by Provider: 01/22/21 20:33 Source: patient, family and RN notes reviewed Mode of arrival: ambulatory Limitations: no limitations History of Present Illness HPI narrative: Patient is a 50-year-old female who presents with wound to the right breast patient several days earlier applied a cream to the right breast to remove a skin tag which resulted in a dime sized burn area and ulceration which now has erythematous margins patient brought the cream on [employer]. Patient notes aching pain worse with touch and palpation. Patient noted some chills and nausea earlier today. Related Data Allergies Allergy/AdvReac Type Severity Reaction Status Date / Time morphine AdvReac Nausea and Verified 01/02/21 13:07 Vomiting Review of Systems Review of Systems: All systems reviewed & are unremarkable except as noted in HPI and below PMFSH Past Medical History Medical History Obesity Surgical History Surgical History H/O cosmetic surgery Social History Social History Smoking status: Former smoker Gender identity (if verbalized by the patient): Female Exam Narrative: Exam Narrative: GENERAL: Well-appearing, well-nourished, and in no acute distress. HEAD: Normocephalic, atraumatic. EYES: PERRLA and EOMI. ENT: Nares clear, no rhinorrhea or epistaxis. Mucous membranes moist. CHEST: Clear to auscultation. No respiratory distress. No wheezes rales or rhonchi HEART: Regular rate and rhythm. No murmur heard. BREAST: Patient with dime sized superficial ulceration of the right medial breast with erythematous margins EXTREMITIES: Normal range of motion. No edema. SKIN: Warm, dry, no rash. NEURO: No focal deficits. Alert and oriented x3. PSYCH: Normal mood and affect. Course Course Emergency Course: Patient evaluated for wound to the right breast will be placed on antibiotics and referred to plastic surgery for further evaluation of her wound patient agrees with this plan she is afebrile nontoxic-appearing in no distress Vital Signs Vital signs: Vital Signs Temperature 97.9 F 01/22/21 20:42 Pulse Rate 83 06/24/21 20:42 Respiratory Rate 16 01/22/21 20:42 Blood Pressure 126/85 01/22/21 20:42 Pulse Oximetry 99 01/22/21 20:42 Temperature 97.9 F 01/22/21 20:42 Pulse Rate 83 01/22/21 20:42 Respiratory Rate 16 01/22/21 20:42 Blood Pressure 126/85 01/22/21 20:42 Pulse Oximetry 99 01/22/21 20:42 Medical Decision Making MDM Narrative Medical decision making narrative: Patient provided with follow-up with plastic surgery for right breast wound felt appropriate for outpatient reevaluation Vital Signs Vital Signs: Vital Signs Temperature 97.9 F 01/22/21 20:42 Pulse Rate 83 01/22/21 20:42 Respiratory Rate 16 01/22/21 20:42 Blood Pressure 126/85 01/22/21 20:42 Pulse Oximetry 99 01/22/21 20:42 Temperature 97.9 F 01/22/21 20:42 Pulse Rate 83 01/22/21 20:42 Respiratory Rate 16 01/22/21 20:42 Blood Pressure 126/85 01/22/21 20:42 Pulse Oximetry 99 01/22/21 20:42 Discharge Plan Discharge Clinical Impression: Wound of right breast Patient Disposition: Home, Self-Care Condition: Stable Instructions: Antibiotic Form, Wound Infection (DC) Additional Instructions: Follow-up with plastic surgery by phone tomorrow to set up for reevaluation in the next 3 to 5 days take antibiotics as directed. return if symptoms worsen or concerns, any increase in redness swelling pain or fever over 100.5 Follow patient education sheet Clean wound with mild soapy water. Apply antibiotic ointment and clean dressing at least three times daily Prescriptions: New mupirocin 2 % ointment 1 appl
== END 2021-01-22 21:31 | disposition home or self-care (01) ==
PROVIDERS: Emergency Provider Emergency Medicine; PCP Emergency Medicine
DX: L98.499 Non-pressure chronic ulcer of skin of other sites with unspecified severity (principal); Z87.891 Personal history of nicotine dependence
CPT/HCPCS: 99283

== ENCOUNTER 2021-02-12 13:59 | Emergency (ER) | payer OTHER, SELFPAY ==
[2021-02-12 14:11] VITALS: BP 130/84; PULSE 93; RESP 18; TEMP 36.3; O2SAT 96
--- NOTE | 2021-02-12 15:21 | ED.DENTAL ---
HPI - Dental/Oral General Chief complaint: Dental/Oral Stated complaint: Broken Tooth Time Seen by Provider: 02/12/21 15:15 Source: RN notes reviewed History of Present Illness HPI Narrative: Patient presents emergency department from home for dental pain. Patient states symptoms began 2 days ago. The pain is located in the left upper tooth states that it is carious and cracked states it hurts to touch she states that she has been taking Tylenol pain for the home with no relief. She does have a dentist appointment at the end of the month she denies any fevers or chills states the pain does radiate to her ear states she can take ibuprofen secondary to history of ulcers Related Data Allergies Allergy/AdvReac Type Severity Reaction Status Date / Time ibuprofen [From Motrin] Allergy Unknown Verified 02/12/21 15:13 morphine AdvReac Nausea and Verified 02/12/21 15:13 Vomiting Review of Systems Review of Systems: Narrative: Gen.: Denies fevers or chills Eyes: Denies eye pain or visual change ENT: See HPI Respiratory: Denies shortness of breath or cough CV: Denies chest pain GI: Denies abdominal pain nausea, emesis Musculoskeletal: Denies neck pain Neuro: Denies headache Skin: Denies rash Except as documented, all other systems reviewed and negative PMFSH Past Medical History Medical History Obesity Surgical History Surgical History H/O cosmetic surgery Social History Social History Smoking status: Former smoker Gender identity (if verbalized by the patient): Female Exam Narrative: Exam Narrative: APPEARANCE: No acute distress, nontoxic, resting in bed HEENT: Normocephalic, atraumatic, TMs clear bilaterally, nares patent, oral mucosa moist, airway patent, tooth #13 is carious and tender to palpation mild erythema with no fluctuance of the gum no overlying swelling of the cheek RESPIRATORY: No respiratory distress MUSCULOSKELETAl: Moves all extremities. NEURO: Awake and alert. Following commands, speech normal, no focal deficits SKIN:: Warm, dry. Normal Color PSYCHIATRIC: Normal affect/mood Course Course Emergency Course: Discussed with patient results of workup and diagnosis. Discussed need for follow-up with primary care, proper use of medication, and reasons to return to the emergency department. Patient understands and agrees to current treatment plan Vital Signs Vital signs: Vital Signs Temperature 97.4 F L 02/12/21 14:11 Pulse Rate 93 02/12/21 14:11 Respiratory Rate 18 02/12/21 14:11 Blood Pressure 130/84 02/12/21 14:11 Pulse Oximetry 96 02/12/21 14:11 Temperature 97.4 F L 02/12/21 14:11 Pulse Rate 93 02/12/21 14:11 Respiratory Rate 18 02/12/21 14:11 Blood Pressure 130/84 02/12/21 14:11 Pulse Oximetry 96 02/12/21 14:11 Discharge Plan Discharge Clinical Impression: Dental caries, Toothache Patient Disposition: Home, Self-Care Condition: Stable Instructions: Antibiotic Form, Toothache (ED) Additional Instructions: For increasing pain fever or any other symptoms or concern. Follow-up with your dentist at your scheduled appointment Prescriptions: New penicillin V potassium 500 mg tablet 500 mg PO TID Qty: 30 RF: 0 No Action naproxen [Naprosyn] 500 mg tablet 500 mg PO BID PRN (Reason: pain) Qty: 10 RF: 0 esomeprazole magnesium [Nexium Packet] [address] for susp in packet 40 mg PO DAILY Qty: 14 RF: 0 cyclobenzaprine 10 mg tablet 10 mg PO TID PRN (Reason: muscle spasm) Qty: 20 RF: 0 clindamycin HCl 150 mg capsule 450 mg PO Q8H 10 Days Qty: 90 RF: 0 chlorhexidine gluconate [Peridex] 0.12 % mouthwash 15 ml buccal BID Qty: 1500 RF: 0 fluconazole [Diflucan] 200 mg tablet 200 mg PO DAILY Qty: 1 RF: 0 mupirocin 2 % ointment 1 a
[2021-02-12] MEDS: PENICILLIN V POTASSIUM 250 MG TABLET 500 MG PO (15:24)
== END 2021-02-12 15:32 | disposition home or self-care (01) ==
LOC: ANHED 15:27
PROVIDERS: Emergency Provider Emergency Medicine; PCP Emergency Medicine
DX: K02.9 Dental caries, unspecified (principal); Z87.891 Personal history of nicotine dependence
CPT/HCPCS: 99283; A9270

== ENCOUNTER 2021-02-22 14:56 | Emergency (ER) | payer OTHER, SELFPAY ==
[2021-02-22 14:58] VITALS: BP 135/82; PULSE 81; RESP 16; TEMP 36.6; O2SAT 97
[2021-02-22 16:45] VITALS: BP 122/95; PULSE 72; RESP 20; TEMP 36.3; O2SAT 100
--- NOTE | 2021-02-22 18:02 | ED.DENTAL ---
HPI - Dental/Oral General Chief complaint: Dental/Oral Stated complaint: TOOTHACHE Time Seen by Provider: 02/22/21 17:35 Source: patient Mode of arrival: ambulatory Limitations: no limitations History of Present Illness HPI Narrative: This is a 50-year-old female that presents to the emergency department for toothache present x 10 days. Reports she has a broken upper tooth on the left side. The area has been painful especially with touch or chewing. She finished 10 days of penicillin without relief. She has been taking Tylenol with little relief. Denies fever, erythema, or edema. MD Complaint: tooth pain Location: Tooth # (12) Related Data Allergies Allergy/AdvReac Type Severity Reaction Status Date / Time ibuprofen [From Motrin] Allergy Unknown Verified 02/22/21 16:44 morphine AdvReac Nausea and Verified 02/22/21 16:44 Vomiting Review of Systems Review of Systems: Narrative: CONSTITUTIONAL: Denies fever ENT: Reports dentalgia All systems reviewed & are unremarkable except as noted in HPI and below PMFSH Past Medical History Medical History Obesity Surgical History Surgical History H/O cosmetic surgery Social History Social History Smoking status: Former smoker Gender identity (if verbalized by the patient): Female Exam Narrative: Exam Narrative: GENERAL: Well-appearing, well-nourished, and in no acute distress. HEAD: Normocephalic, atraumatic. EYES: EOMI. ENT: Mucous membranes moist. Oropharynx without tonsillar hypertrophy exudate or other lesions. Tooth #12 tender to palpation and broken. No surrounding erythema or fluctuance to suggest abscess NECK: Supple. No adenopathy or masses. CHEST: Clear to auscultation. No respiratory distress. No wheezes rales or rhonchi HEART: Regular rate and rhythm. No murmur heard. Normal peripheral pulses. ABDOMEN: Soft, nontender, nondistended, normal active bowel sounds. EXTREMITIES: Normal range of motion. No edema. SKIN: Warm, dry, no rash. NEURO: No focal deficits. Alert and oriented x3. PSYCH: Normal mood and affect Course Vital Signs Vital signs: Vital Signs Temperature 97.9 F 02/22/21 14:58 Pulse Rate 81 02/22/21 14:58 Respiratory Rate 16 02/22/21 14:58 Blood Pressure 135/82 02/22/21 14:58 Pulse Oximetry 97 02/22/21 14:58 Temperature 97.4 F L 02/22/21 16:45 Pulse Rate 72 02/22/21 16:45 Respiratory Rate 20 02/22/21 16:45 Blood Pressure 122/95 H 02/22/21 16:45 Pulse Oximetry 100 02/22/21 16:45 MDM - Dental/Oral MDM Narrative Medical decision making narrative: Patient presents to the ER for continued dentalgia after finishing 10 days of penicillin. No surrounding erythema or fluctuance to suggest abscess. Patient will be started on Clindamycin and was instructed to follow up with her dentist at her scheduled appointment. She was given warnings to return to the ER Critical Care Time Critical Care Time Critical Care Time: No Discharge Plan Discharge Clinical Impression: Toothache Patient Disposition: Home, Self-Care Condition: Stable Instructions: Antibiotic Form, Toothache (ED) Additional Instructions: Return to the Emergency Department if you experience fever >101, increasing swelling and redness of your tooth, or any other symptoms that are concerning to you Take antibiotic as prescribed. Tylenol as needed for pain. You can apply a dab of clove oil to a Qtip and apply to the tooth to help numb the area Follow up with your dentist Prescriptions: New clindamycin HCl 300 mg capsule 300 mg PO Q6H 7 Days Qty: 28 RF: 0 No Action naproxen [Naprosyn] 500 mg tablet 500 mg PO BID PRN (Reason: pain) Qty: 10 RF: 0 esomeprazole magnesium [Nexium Packet] [address] for susp in packet 40 mg PO DAILY Qty: 14 R
[2021-02-22] MEDS: KETOROLAC 30 MG/ML VIAL (*BKC) IM (18:05)
[2021-02-22] MEDS: FLUCONAZOLE 150 MG TABLET PO (18:26)
== END 2021-02-22 18:52 | disposition home or self-care (01) ==
PROVIDERS: Emergency Provider Emergency Medicine; PCP Emergency Medicine
DX: K08.89 Other specified disorders of teeth and supporting structures (principal); E66.9 Obesity, unspecified; Z68.33 Body mass index [BMI] 33.0-33.9, adult; Z87.891 Personal history of nicotine dependence
CPT/HCPCS: 96372; 99283; A9270; J1885

== ENCOUNTER 2021-05-23 20:25 | Emergency (ER) | payer OTHER, SELFPAY ==
[2021-05-23 20:29] VITALS: BP 145/83; PULSE 96; RESP 18; TEMP 36.9; O2SAT 99
[2021-05-23 20:48] LABS: Add Urine Microscopic? NO; Appearance Urine Clear (Clear); Bilirubin Urine Negative (Negative); Blood Urine Negative (Negative); Color Urine Straw (Yellow); Glucose Urine UA Negative (Negative); Ketones Urine Negative (Negative); Leukocyte Esterase Ur Negative LEU/UL (Negative); Nitrate Urine Negative (Negative); Protein Urine Negative (Negative); Urobilinogen Urine Negative mg/dL (<2.0)
--- NOTE | 2021-05-23 20:53 | ED.GENADULT ---
HPI - General Adult General Chief complaint: Urogenital-Female Stated complaint: uti? Time Seen by Provider: 05/23/21 20:49 Source: patient Mode of arrival: ambulatory Limitations: no limitations History of Present Illness HPI narrative: Patient is here for evaluation of urinary symptoms. She states that the symptoms started 24 to 48 hours after having intercourse with her boyfriend whom she had been broken up with for several weeks. She is concerned that he gave her an STI. She also has a possible dental abscess. She is scheduled several appointments with a dentist and states that they have canceled and rescheduled 3 times. She currently is scheduled to see them June 11. She denies any fever, she does have dysuria and foul odor. No discharge. Onset (ago): day(s) Quality: burning Relieving factors: none Associated symptoms: denies other symptoms Related Data Allergies Allergy/AdvReac Type Severity Reaction Status Date / Time ibuprofen [From Motrin] Allergy Unknown Verified 05/23/21 20:25 morphine AdvReac Nausea and Verified 05/23/21 20:25 Vomiting Review of Systems Review of Systems: All systems reviewed & are unremarkable except as noted in HPI and below PMFSH Past Medical History Medical History Obesity Surgical History Surgical History H/O cosmetic surgery Social History Social History Smoking status: Former smoker Gender identity (if verbalized by the patient): Female Exam Const: General: no acute distress and alert Orientation/consciousness: patient oriented x3 HENMT: Mouth: Yes Normal oral and palatal mucosa present Teeth and gingiva: caries Other: small abscess over #11-12 Eyes: Pupils: Equal, round and reactive pupils present Resp: Effort & Inspection: normal respiratory effort Cardio: Rate: regular rate Rhythm: regular rhythm GI: GI Palp: Yes Soft to palpation and Yes Tenderness to palpation present (GI) (suprapubic.) : General: Yes no CVA tenderness Speculum Exam - Vagina: normal appearance of the vagina Speculum Exam - Cervix: normal appearance of the cervix Bimanual exam- vagina & uterus: normal bimanual exam Bimanual Exam- Adnexa, other: normal adnexae Skin: General skin exam: normal color Psych: Mental Status: mental status grossly normal Course Course Emergency Course: Pelvic exam was unremarkable, cultures are pending. Patient instructed to sign up for patient portal in order to get her test results. We will treat her dental abscess with Clinda again as that worked well for her last time. Vital Signs Vital signs: Vital Signs Temperature 36.9 C 05/23/21 20:29 Pulse Rate 96 05/23/21 20:29 Respiratory Rate 18 05/23/21 20:29 Blood Pressure 145/83 H 05/23/21 20:29 Pulse Oximetry 99 05/23/21 20:29 Temperature 36.9 C 05/23/21 20:29 Pulse Rate 96 05/23/21 20:29 Respiratory Rate 18 05/23/21 20:29 Blood Pressure 145/83 H 05/23/21 20:29 Pulse Oximetry 99 05/23/21 20:29 Medical Decision Making Vital Signs Vital Signs: Vital Signs Temperature 36.9 C 05/23/21 20:29 Pulse Rate 96 05/23/21 20:29 Respiratory Rate 18 05/23/21 20:29 Blood Pressure 145/83 H 05/23/21 20:29 Pulse Oximetry 99 05/23/21 20:29 Temperature 36.9 C 05/23/21 20:29 Pulse Rate 96 05/23/21 20:29 Respiratory Rate 18 05/23/21 20:29 Blood Pressure 145/83 H 05/23/21 20:29 Pulse Oximetry 99 05/23/21 20:29 Lab Data Labs: Lab Results 05/23/21 Range/Units 20:32 Urine Color Straw (Yellow) Urine Appearance Clear (Clear) Urine pH 8.0 (5.0-9.0) Ur Specific [place] 1.010 (1.001-1.035) Urine Protein Negative (Negative) mg/dL Urine Glucose (UA) Negative (Negative) mg/dL Urine Ketones Negative (Negative) mg/dL Ur Blood (Man) Negative (
[2021-05-23 22:07] VITALS: BP 140/80; PULSE 88; RESP 18; O2SAT 99
== END 2021-05-23 22:08 | disposition home or self-care (01) ==
PROVIDERS: Emergency Medicine; Physician Assistant; Emergency Provider Emergency Medicine
DX: R30.0 Dysuria (principal); K04.7 Periapical abscess without sinus; E66.9 Obesity, unspecified; Z87.891 Personal history of nicotine dependence
CPT/HCPCS: 81003; 81025; 87070; 87077; 87491; 87591; 87808; 99283

== ENCOUNTER 2021-07-04 09:57 | Emergency (ER) | payer OTHER, SELFPAY ==
[2021-07-04 10:05] VITALS: BP 116/77; PULSE 85; RESP 14; TEMP 36.8; O2SAT 100
[2021-07-04 14:03] VITALS: BP 130/89; PULSE 74; RESP 16; O2SAT 98
[2021-07-04 15:11] LABS: Basophils Percent Auto 0.7 % (0.2-1.2); Eosinophils Absolute Auto 0.2 K/mm3 (0-0.3); Eosinophils Percent Auto 3.1 % (0-4.4); Hematocrit 38.2 % (37.0-47.0); Hemoglobin 12.3 g/dL (12.0-15.0); Immature Granulocyte Absolute 0.02 K/mm3 (0.00-0.031); Immature Granulocyte Percent A 0.3 % (0-0.5); Lymphocytes Absolute Auto 1.47 K/mm3 (0.9-3.2); Lymphocytes Percent Auto 24.2 % (18.3-44.2); Mean Corpuscular HGB Conc 32.2 g/dl (32-36); Mean Corpuscular Hemoglobin 30.1 pg (26-34); Mean Corpuscular Volume 93.6 fl (80-100); Mean Platelet Volume 10.1 fl (7.4-10.4); Monocytes Absolute Auto 0.4 K/mm3 (0.1-0.6); Monocytes Percent Auto 6.9 % (2.6-8.5); Neutrophils Absolute Auto 3.9 K/mm3 (1.3-6.7); Neutrophils Percent Auto 64.8 % (45.5-73.1); Platelet Count Result 341 k/mm3 (150-375); Red Blood Count 4.08 M/mm3 (4.2-5.4); Red Cell Distribution Width 13.4 % (11.5-14.5); White Blood Count 6.1 K/mm3 (4.5-10.0)
[2021-07-04 15:32] LABS: Alanine Aminotransferase 17 U/L (4-35); Albumin Level 4.1 g/dL (3.5-5.1); Alkaline Phosphatase 64 U/L (38-126); Anion Gap 8 mmol/L (8-16); Aspartate Amino Transferase 27 U/L (14-36); Bilirubin,Total 0.6 mg/dL (0.2-1.3); Blood Urea Nitrogen 15 mg/dL (7-17); Calcium 8.9 mg/dL (8.4-10.2); Carbon Dioxide 26 mmol/L (22-30); Chloride 107 mmol/L (98-107); Estimated CRCL calculation 111 ml/min; Estimated Glomerular Filt Rate > 60; Glucose 108 mg/dL (65-110); Lactate Dehydrogenase 324 U/L (313-618); Lipase 59 U/L (23-300); Sodium 141 mmol/L (137-145)
--- NOTE | 2021-07-04 15:58 | ED.URI ---
HPI - URI/Sore Throat General Chief Complaint: Upper Respiratory Infection Stated Complaint: Sanders, diarrhea, vomiting I think I have covid. Time Seen by Provider: 07/04/21 14:01 Source: patient Mode of arrival: ambulatory Limitations: no limitations History of Present Illness HPI Narrative: 51-year-old female Patient went clubbing and is [place] last weekend and 3 or 4 days later started feeling bad She complains of head congestion, left ear feeling kind of plugged up, headaches, nausea and occasional vomiting, a little diarrhea She does not really have a cough or shortness of breath, no dysuria or hematuria, no blood in the diarrhea, no bloody emesis, and no abdominal pain She is partly immunized against Covid She has been in contact with people who may have been in contact with people who may have Covid, but not with anyone who she knows had Covid Related Data Allergies Allergy/AdvReac Type Severity Reaction Status Date / Time ibuprofen [From Motrin] Allergy Unknown Verified 07/04/21 14:05 morphine AdvReac Nausea and Verified 07/04/21 14:05 Vomiting Review of Systems Review of Systems: All systems reviewed & are unremarkable except as noted in HPI and below Constitutional: Constitutional: Reports no additional constitutional complaints, Denies chills, Reports fatigue, Denies fever(s), Denies headache(s) and Reports weakness Eyes: Eyes: Reports no additional eye complaints and Denies change in vision ENT: Denies headache(s), Reports nasal congestion and Denies sore throat Comments: Ear pain Cardiovascular: Cardiovascular: Denies chest pain and Denies dyspnea Respiratory: Respiratory: Denies cough and Denies dyspnea Gastrointestinal: Gastrointestinal: Denies abdominal pain, Reports diarrhea, Reports nausea and Reports vomiting Genitourinary: Genitourinary: Denies hematuria, Denies urinary frequency and Denies dysuria Musculoskeletal: Musculoskeletal: Reports myalgias, Denies deformity, Denies arthralgias, Denies joint swelling and Denies numbness Integumentary/Breasts: Skin/Breast: Denies rash and Denies wounds Neurologic: Denies headache(s), Denies focal weakness and Denies numbness Psychiatric: Psychiatric: Reports no additional psychiatric complaints Endocrine: Endocrine: Reports no additional endocrine complaints Hematologic/Lymphatic: Hematologic/Lymphatic: Reports no additional hematologic/lymphatic complaints Allergic/Immunologic: Allergic/Immunologic: Reports no additional allergic/immunologic complaints PMFSH Past Medical History Medical History Obesity Surgical History Surgical History H/O cosmetic surgery Social History Social History Smoking status: Former smoker Gender identity (if verbalized by the patient): Female Exam Const: General: cooperative and no acute distress Orientation/consciousness: patient oriented x3 (alert) HENMT: Head: normal to inspection, normocephalic and atraumatic Ears: external ears normal and TM's normal bilaterally General nose exam: no epistaxis Mouth: Yes Normal oral and palatal mucosa present Eyes: Conjunctivae: conjunctivae normal EOM: EOMs intact bilaterally Neck: Neck: normal visual inspection, supple and no JVD Resp: Effort & Inspection: normal respiratory effort and not labored Auscultation: clear to auscultation bilaterally, no rales, no rhonchi, no wheezes and other (BS =) Cardio: Rate: regular rate Rhythm: regular rhythm Heart sounds: no murmurs GI: GI Palp: Yes Soft to palpation, No Tenderness to palpation present (GI), No Guarding due to palpation present (GI) and No Rebound tenderness present Skin: General skin exam: normal color and no rashes or lesions noted Neuro: General: patient oriented x3 (alert) and moves all extremities Speech: normal speech Extrem: Gen
[2021-07-04 17:10] VITALS: BP 123/89; PULSE 50; RESP 16; O2SAT 99
[2021-07-06 19:11] LABS: SARS-CoV-2 RNA PCR Negative
== END 2021-07-04 17:10 | disposition home or self-care (01) ==
PROVIDERS: Emergency Provider Emergency Medicine
DX: R11.2 Nausea with vomiting, unspecified (principal); Z20.822 Contact with and (suspected) exposure to COVID-19; E66.9 Obesity, unspecified; Z68.33 Body mass index [BMI] 33.0-33.9, adult
CPT/HCPCS: 36415; 80053; 82728; 83615; 83690; 85025; 87804; 99283; C9803; U0003; U0005

== ENCOUNTER 2021-11-04 11:54 | Emergency (ER) | payer OTHER, SELFPAY ==
[2021-11-04 11:56] VITALS: BP 118/71; PULSE 82; RESP 16; TEMP 36.7; O2SAT 99
--- NOTE | 2021-11-04 12:17 | ED.GENADULT ---
HPI - General Adult General Chief complaint: Ear Stated complaint: ear pain Time Seen by Provider: 11/04/21 12:08 Source: patient Mode of arrival: ambulatory Limitations: no limitations History of Present Illness HPI narrative: 51-year-old otherwise healthy here with complaints of left ear pain for past few days. Patient states that she is seeing her primary doctor on 4 days ago was given Augmentin. She states that medication is not helping and she is feeling extremely weak. She also states that she has dental caries which she is scheduled to see a dentist in November. She denies any fever or chills. No history of nausea or vomiting. Onset (ago): day(s) (4) Location: mouth Radiation: other (leftear) Severity: moderate Quality: aching Pain Consistency: constant Relieving factors: none Exacerbating factors: none Associated symptoms: denies other symptoms Related Data Allergies Allergy/AdvReac Type Severity Reaction Status Date / Time ibuprofen [From Motrin] Allergy Unknown Verified 11/04/21 12:01 morphine AdvReac Nausea and Verified 11/04/21 12:01 Vomiting Review of Systems Review of Systems: All systems reviewed & are unremarkable except as noted in HPI and below Constitutional: Constitutional: Reports no additional constitutional complaints Eyes: Eyes: Reports no additional eye complaints ENT: Reports as per HPI Cardiovascular: Cardiovascular: Reports no additional cardiovascular complaints Respiratory: Respiratory: Reports no additional respiratory complaints Gastrointestinal: Gastrointestinal: Reports no additional gastrointestinal complaints Musculoskeletal: Musculoskeletal: Reports no additional musculoskeletal complaints Integumentary/Breasts: Skin/Breast: Reports system reviewed and no additional complaints, except as docu Neurologic: Reports system reviewed and no additional complaints, except as documented Endocrine: Endocrine: Reports no additional endocrine complaints PMFSH Past Medical History Medical History Obesity Surgical History Surgical History H/O cosmetic surgery Social History Social History Smoking status: Former smoker Gender identity (if verbalized by the patient): Female Exam Narrative: GENERAL: Well-appearing, well-nourished, and in no acute distress. HEAD: Normocephalic, atraumatic. EYES: PERRLA and EOMI. ENT: Nares clear, Dental caries #16 ,17 , Mucous membranes moist. NECK: Supple. CHEST: Clear to auscultation. No respiratory distress. HEART: Regular rate and rhythm. No murmur heard. Normal peripheral pulses.. EXTREMITIES: Normal range of motion. No edema. SKIN: Warm, dry, no rash. NEURO: No focal deficits. Alert and oriented x3. PSYCH: Normal mood and affect. Course Course Emergency Course: Inform patient that her pain is most likely from her dental caries recommended her to take clindamycin as she is not responding to Augmentin. Take pain medication as prescribed, follow-up with the dentist as scheduled Vital Signs Vital signs: Vital Signs Temperature 36.7 C 11/04/21 11:56 Pulse Rate 82 11/04/21 11:56 Respiratory Rate 16 11/04/21 11:56 Blood Pressure 118/71 11/04/21 11:56 Pulse Oximetry 99 11/04/21 11:56 Temperature 36.7 C 11/04/21 11:56 Pulse Rate 82 11/04/21 11:56 Respiratory Rate 16 11/04/21 11:56 Blood Pressure 118/71 11/04/21 11:56 Pulse Oximetry 99 11/04/21 11:56 Medical Decision Making Vital Signs Vital Signs: Vital Signs Temperature 36.7 C 11/04/21 11:56 Pulse Rate 82 11/04/21 11:56 Respiratory Rate 16 11/04/21 11:56 Blood Pressure 118/71 11/04/21 11:56 Pulse Oximetry 99 11/04/21 11:56 Temperature 36.7 C 11/04/21 11:56 Pulse Rate 82 11/04/21 11:56 Respiratory Rate 16 11/04/21 11:56 Blood Pressure 118/71 0
== END 2021-11-04 12:33 | disposition home or self-care (01) ==
PROVIDERS: Emergency Provider Family Medicine; PCP Emergency Medicine
DX: K08.89 Other specified disorders of teeth and supporting structures (principal)
CPT/HCPCS: 99283

== ENCOUNTER 2021-12-17 14:18 | Emergency (ER) | payer OTHER, SELFPAY ==
[2021-12-17 14:18] VITALS: BP 133/79; PULSE 94; RESP 16; TEMP 36.4; O2SAT 100
--- NOTE | 2021-12-17 14:51 | ED.EAR ---
HPI - Ear Problem General Chief complaint: Ear Stated complaint: ear pain Time Seen by Provider: 12/17/21 14:40 Source: patient History of Present Illness HPI Narrative: Patient presents with bilateral ear pain. For she had a sinus infection a few weeks ago improved with clindamycin and all of her symptoms resolved approximately 4 days ago she had return of pressure and congestion and her maxillary sinus. She is also now developed bilateral ear pain she is concerned that maybe she had a sinus infection that is now developing into an ear infection so she came to ER for evaluation. She has been using [id number] decongestants and Mora [place] without relief of her symptoms. She denies any shortness of breath, sore throat, fevers, chills, nausea, vomiting Related Data Allergies Allergy/AdvReac Type Severity Reaction Status Date / Time ibuprofen [From Motrin] Allergy Unknown Verified 12/17/21 14:37 morphine AdvReac Nausea and Verified 12/17/21 14:37 Vomiting Review of Systems Review of Systems: CONSTITUTIONAL: Denies fever, chills, or sweats. EYES: Denies visual changes, redness, or discharge. ENT: Denies rhinorrhea, sore throat. CARDIOVASCULAR: Denies chest pain, palpitations, or edema. RESPIRATORY: Denies cough or dyspnea. GASTROINTESTINAL: Denies abdominal pain, nausea, vomiting, or diarrhea. GENITOURINARY: Denies dysuria or hematuria. SKIN: Denies rash or itching. MUSCULOSKELETAL: Denies back pain, joint pain, or myalgia. NEUROLOGIC: Denies headache, numbness, dizziness, or weakness. PSYCHIATRIC: Denies anxiety or depression. All systems reviewed & are unremarkable except as noted in HPI and below PMFSH Past Medical History Medical History Obesity Surgical History Surgical History H/O cosmetic surgery Social History Social History Smoking status: Former smoker Gender identity (if verbalized by the patient): Female Exam Narrative: GENERAL: Well-appearing, well-nourished, and in no acute distress. HEAD: Normocephalic, atraumatic. EYES: PERRLA and EOMI. ENT: Nares clear, no rhinorrhea or epistaxis. Mucous membranes moist. Tenderness to palpation on the maxillary sinus clear fluid noted behind the bilateral TMs no erythema no apparent drainage. TMs are clear EACs are clear bilaterally NECK: Supple. No masses. No JVD EXTREMITIES: Normal range of motion. No edema. SKIN: Warm, dry, no rash. NEURO: No focal deficits. Alert and oriented x3. PSYCH: Normal mood and affect. Course Vital Signs Vital signs: Vital Signs Temperature 36.4 C 12/17/21 14:18 Pulse Rate 94 12/17/21 14:18 Respiratory Rate 16 12/17/21 14:18 Blood Pressure 133/79 12/17/21 14:18 Pulse Oximetry 100 12/17/21 14:18 Temperature 36.4 C 12/17/21 14:18 Pulse Rate 87 12/17/21 15:09 Respiratory Rate 15 12/17/21 15:09 Blood Pressure 133/79 12/17/21 14:18 Pulse Oximetry 99 12/17/21 15:09 Medical Decision Making [facility] Narrative Medical decision making narrative: H&P as above, vss, pt looks clinically well, exam with tenderness palpation of the maxillary sinuses ears clear bilaterally, llabs/img considered, symptomatic relief available as needed, on reevaluation pt continues to looks clinically well. Suspect viral sinusitis however given patient's recurrence and history she is high risk for bacterial infections. Patient was given antibiotic education discharged home with antibiotics and not instructed to take them until she has had not improving or worsening symptoms for at least 7 days., dns otitis media otitis externa, necrotizing soft tissue infection, severe sepsis, airway compromise. plan to tx/monitor as op w/ pcm f/u findings/plan discussed with pt, pt agree/comfortable with plan, return precautions given Vital Signs Vital Signs: Vital Sign
[2021-12-17 15:09] VITALS: PULSE 87; RESP 15; O2SAT 99
== END 2021-12-17 15:11 | disposition home or self-care (01) ==
LOC: ANHED 14:58
PROVIDERS: Emergency Provider Emergency Medicine
DX: J32.9 Chronic sinusitis, unspecified (principal); E66.9 Obesity, unspecified; Z68.33 Body mass index [BMI] 33.0-33.9, adult
CPT/HCPCS: 99283

== ENCOUNTER 2022-12-01 14:05 | Emergency (ER) | payer OTHER, SELFPAY ==
[2022-12-01 14:06] VITALS: BP 134/86; PULSE 96; RESP 16; TEMP 36.1; O2SAT 99
--- NOTE | 2022-12-01 14:38 | ED.DENTAL ---
HPI - Dental/Oral General Chief complaint: Skin/Abscess/Foreign Body <Mayda Martinez APRN - Last Filed: 12/01/22 14:52> Stated complaint: abscess <Mayda Martinez APRN - Last Filed: 12/01/22 14:52> Time Seen by Provider: 12/01/22 14:32 <Mayda Martinez APRN - Last Filed: 12/01/22 14:52> Source: patient <Mayda Martinez APRN - Last Filed: 12/01/22 14:52> Mode of arrival: ambulatory <Mayda Martinez APRN - Last Filed: 12/01/22 14:52> Limitations: no limitations <Mayda Martinez APRN - Last Filed: 12/01/22 14:52> History of Present Illness HPI Narrative: 52-year-old female presents today with concerns for sinus infection and dental abscess. Patient states she has been treated multiple times for dental abscess and is is not resolved. Patient has poor dentition and she is aware. Was recently at her dentist about 3 weeks ago treated with amoxicillin and states that it still hurts. Patient also states she has had a runny nose, congestion, and has a sinus infection. Patient states she had a fever but does not know what it was. Does endorse chills but denies body aches. Patient with sore throat this morning. Patient denies any sick contacts. Patient states she was in bed over the weekend but just got out of bed because she had to work. Respiratory symptoms started on Tuesday or Tuesday. <Mayda Martinez APRN - Last Filed: 12/01/22 14:52> Location: Tooth # (Multiple missing teeth noted, tooth left upper molar cracked. No fluctuance noted, no erythema noted, no obvious abscess.) <Mayda Martinez APRN - Last Filed: 12/01/22 14:52> Related Data Allergies/adverse reactions: Allergies Allergy/AdvReac Type Severity Reaction Status Date / Time ibuprofen [From Motrin] Allergy Unknown Verified 12/01/22 14:30 morphine AdvReac Nausea and Verified 12/01/22 14:30 Vomiting <Mayda Martinez APRN - Last Filed: 12/01/22 14:52> Review of Systems Review of Systems: CONSTITUTIONAL: Fevers, chills, sweats denies body aches. ENT: Positive for rhinorrhea, congestion, sore throat, dental pain. CARDIOVASCULAR: Denies chest pain, palpitations, or edema. RESPIRATORY: Denies cough or dyspnea. GASTROINTESTINAL: Denies abdominal pain, nausea, vomiting, or diarrhea. <Mayda Martinez, - Last Filed: 12/01/22 14:52> PMFSH Past Medical History Medical History: Medical History Obesity <Mayda Martinez - Last Filed: 12/01/22 14:52> Surgical History Surgical History: Surgical History H/O cosmetic surgery <Mayda Martinez Last Filed: 12/01/22 14:52> Social History Social History: Social History Smoking status: Former smoker Gender identity (if verbalized by the patient): Female <Mayda Martinez Last Filed: 12/01/22 14:52> Exam Narrative: GENERAL: Well-appearing, well-nourished, and in no acute distress. HEAD: Normocephalic, atraumatic. EYES: PERRLA and EOMI. ENT: Nares clear, no rhinorrhea or epistaxis. Mucous membranes moist. Oropharynx without tonsillar hypertrophy exudate or other lesions. Bilateral TMs pearly sepulveda nonbulging. Poor dentition noted with multiple missing teeth. Left upper molar cracked. No obvious abscess noted. No facial swelling or erythema noted. Patient able to swallow without difficulty. No trismus or Ludewig's angina. NECK: Supple. No adenopathy or masses. CHEST: Clear to auscultation. No respiratory distress. No wheezes rales or rhonchi HEART: Regular rate and rhythm. No murmur heard. Normal peripheral pulses. SKIN: Warm, dry, no rash. <Mayda Martinez - Last Filed: 12/01/22 14:52> Course [employer]ER/PA Physician Supervision I agree with midlevel documentation; I performed the medical decision making component of this evaluation.
== END 2022-12-01 14:49 | disposition home or self-care (01) ==
PROVIDERS: Emergency Provider Nurse Practitioner Family
DX: K08.89 Other specified disorders of teeth and supporting structures (principal); E66.9 Obesity, unspecified; Z68.34 Body mass index [BMI] 34.0-34.9, adult; Z87.891 Personal history of nicotine dependence
CPT/HCPCS: 99283

== ENCOUNTER 2023-10-04 16:36 | Emergency (ER) | payer OTHER, SELFPAY ==
--- NOTE | ~2023-10-04 | CT_ITS ---
EXAMINATION: CT abdomen pelvis w con DATE: 10/04/2023 19:06 INDICATION: left flank pain TECHNIQUE: Computed tomography (CT) of the abdomen and pelvis was performed with 100 mL Omnipaque-350 intravenous contrast. Automated exposure control and iterative reconstruction technique were employe d. The dose-length product was 910.95 mGy-cm. COMPARISON: None. FINDINGS: Lower thorax: Bilateral breast implants. Liver: Normal. Biliary/Gallbladder: Gallbladder is absent. No bile duct dilation. Pancreas: Mild atrophy. Spleen: Normal. Adrenals:No mass. Kidneys: No suspicious mass, obstructing stone, or hydronephrosis. GI tract: Mild distal esophageal and gastric wall edema. Prior gastric surgery. Uncomplicated small b owel anastomosis. No small or large bowel dilation. Normal appendix. Mesentery/Peritoneum: No ascites, mass, or free air. Retroperitoneum: No mass. Pelvis: The urinary bladder is mostly empty. Normal ovaries and uterus. Soft Tissues: Abdominal wall diastases. Small uncomplicated fat-containing periumbilical hernia Bones: No acute osseous finding. IMPRESSION: No acute abdominopelvic process detected Reviewed, dictated and finalized at location K. 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
[2023-10-04 16:42] VITALS: BP 145/96; PULSE 92; RESP 18; TEMP 35.8; O2SAT 100
[2023-10-04 17:16] LABS: Appearance Urine Clear (Clear); Bacteria Urine None Seen /hpf; Bilirubin Urine Negative (Negative); Blood Urine Negative (Negative); Color Urine Yellow (Yellow); Glucose Urine UA Negative (Negative); Ketones Urine Trace mg/dL (Negative); Leukocyte Esterase Ur Trace LEU/UL (Negative); Nitrate Urine Negative (Negative); Non Pathogenic Casts 0-2; Protein Urine Negative (Negative); RBC Urine 0-2 /hpf (0-2); Specific Grav Ur 1.032 (1.001-1.035); Squamous Epithelial Cell Urine None seen /hpf (Few); WBC Urine 0-5 /hpf; pH Urine 7.5 (5.0-9.0)
--- NOTE | 2023-10-04 17:25 | ED.ABDPAIN ---
HPI - Abdominal Pain General Chief Complaint: Back Pain/Injury <Grover Tatum APRN - Last Filed: 10/04/23 18:53> Stated Complaint: left flank pain <Grover Tatum APRN - Last Filed: 10/04/23 18:53> Time Seen by Provider: 10/04/23 17:25 <Grover Tatum APRN - Last Filed: 10/04/23 18:53> Focused HPI: Maria D is a 53-year-old female patient presenting to the ER today with complaints of left-sided flank pain. Reports that the pain is constant and is worse with movement. Also reports urinary frequency without any blood in her urine. Denies any fever, chills, body aches, nausea, vomiting, or diarrhea. States that she also has been dealing with some constipation. Was able to have a bowel movement today but was only passing small hard stool. Denies any bloody stools. reports her left flank pain at 10/10 currently. General: Well-developed, well nourished, in no apparent distress. Head: Normocephalic, atraumatic. Cardio: Regular rate and rhythm, s1 and s2 normal, no murmur appreciated. Resp: Clear to auscultation bilaterally, no rhonchi, rales, wheezing or rubs. Abdomen: Soft, pliable, bowel sounds present in all quadrants, non-tender to palpation, no organomegly, positive left CVAT tenderness. Patient screened in triage and initial orders placed. Labs, urine and CT abdomen with contrast orders placed. Additional care and disposition to be based upon diagnostic testing and treatment. Patient sign out to Dr. Fartun Sesay <Grover Tatum APRN - Last Filed: 10/04/23 18:53> Focused HPI: Maria D is a 53-year-old female patient presenting to the ER today with complaints of left-sided flank pain. Reports that the pain is constant and is worse with movement. Also reports urinary frequency without any blood in her urine. Denies any fever, chills, body aches, nausea, vomiting, or diarrhea. States that she also has been dealing with some constipation. Was able to have a bowel movement today but was only passing small hard stool. Denies any bloody stools. reports her left flank pain at 10/10 currently. 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 Patient admits that the pain is improved with rest and aggravated by certain movements. She states that when she lays still she does not feel the pain as much. General: Well-developed, well nourished, in no apparent distress. Head: Normocephalic, atraumatic. Cardio: Regular rate and rhythm, s1 and s2 normal, no murmur appreciated. Resp: Clear to auscultation bilaterally, no rhonchi, rales, wheezing or rubs. Abdomen: Soft, pliable, bowel sounds present in all quadrants, non-tender to palpation, no organomegly, positive left CVAT tenderness. Patient screened in triage and initial orders placed. Labs, urine and CT abdomen with contrast orders placed. Additional care and disposition to be based upon diagnostic testing and treatment. Patient sign out to Dr. Fartun Sesay <Neel Baird MD - Last Filed: 10/04/23 22:03> Related Data Allergies/Adverse Reactions: Allergies Allergy/AdvReac Type Severity Reaction Status Date / Time ibuprofen [From Motrin] Allergy Unknown Verified 12/01/22 14:30 morphine AdvReac Nausea and Verified 12/01/22 14:30 Vomiting <Grover Tatum APRN - Last Filed: 10/04/23 18:53> Review of Systems Review of Systems: Pertinent positives per HPI. Patient denies any fever, chills, rash, headache, visual changes, dizziness, cough, runny nose, sore throat, shortness of breath, chest pain, palpitations, nausea, vomiting, or any diarrhea. <Grover Tatum APRN - Last Filed: 10/04/23 18:53> PMFSH Past Medical History Medical History: Medical History (Reviewed 10/04/23 @ 22:02 by Neel Baird MD
[2023-10-04 17:29] LABS: Add Urine Microscopic? YES
[2023-10-04 17:50] LABS: Basophils Percent Auto 0.6 % (0.2-1.2); Eosinophils Absolute Auto 0.2 K/mm3 (0-0.3); Eosinophils Percent Auto 2.7 % (0-4.4); Hematocrit 32.5 % (37.0-47.0); Hemoglobin 9.7 g/dL (12.0-15.0); Immature Granulocyte Absolute 0.01 K/mm3 (0.00-0.031); Immature Granulocyte Percent A 0.2 % (0-0.5); Lymphocytes Absolute Auto 1.76 K/mm3 (0.9-3.2); Lymphocytes Percent Auto 27.8 % (18.3-44.2); Mean Corpuscular HGB Conc 29.8 g/dl (32-36); Mean Corpuscular Hemoglobin 25.6 pg (26-34); Mean Corpuscular Volume 85.8 fl (80-100); Mean Platelet Volume 9.6 fl (7.4-10.4); Monocytes Absolute Auto 0.4 K/mm3 (0.1-0.6); Monocytes Percent Auto 6.8 % (2.6-8.5); Neutrophils Absolute Auto 3.9 K/mm3 (1.3-6.7); Neutrophils Percent Auto 61.9 % (45.5-73.1); Platelet Count Result 477 k/mm3 (150-375); Red Blood Count 3.79 M/mm3 (4.2-5.4); Red Cell Distribution Width 16.9 % (11.5-14.5); White Blood Count 6.3 K/mm3 (4.5-10.0)
[2023-10-04 18:06] LABS: Alanine Aminotransferase 19 U/L (6-35); Albumin Level 3.8 g/dL (3.5-5.1); Alkaline Phosphatase 69 U/L (38-126); Anion Gap 6 mmol/L (8-16); Aspartate Amino Transferase 33 U/L (14-36); Bilirubin,Total 0.3 mg/dL (0.2-1.3); Blood Urea Nitrogen 12 mg/dL (7-17); Calcium 8.7 mg/dL (8.4-10.2); Carbon Dioxide 26 mmol/L (22-30); Chloride 110 mmol/L (98-107); Estimated CRCL calculation 87 ml/min; Estimated Glomerular Filt Rate > 60; Glucose 80 mg/dL (65-110); Lipase 55 U/L (23-300); Potassium 3.6 mmol/L (3.4-5.0); Sodium 142 mmol/L (137-145)
[2023-10-04 18:16] LABS: Hypochromasia 1+ (NORMAL); Ovalocytes 1+ (NORMAL); Platelet Estimate Increased (Adequate); Schistocytes None Seen (NORMAL)
[2023-10-04 18:18] VITALS: PULSE 76; RESP 16; TEMP 36.7; O2SAT 98
[2023-10-04 21:35] VITALS: BP 132/94; PULSE 86; RESP 14; O2SAT 100
[2023-10-04] MEDS: IBUPROFEN 600 MG TABLET PO (22:13)
--- NOTE | 2023-10-04 22:28 | PC.NURSE ---
[facility] not allowing scan of lidocaine patch. Appears like order was discontinued in [facility], but order remains active in orders.
[2023-10-04 22:29] VITALS: BP 137/94; PULSE 86; RESP 14; O2SAT 98
== END 2023-10-04 22:31 | disposition home or self-care (01) ==
PROVIDERS: Nurse Practitioner Family; Emergency Provider Emergency Medicine
DX: S29.012A Strain of muscle and tendon of back wall of thorax, initial encounter (principal); E66.9 Obesity, unspecified; Z68.36 Body mass index [BMI] 36.0-36.9, adult; Z87.891 Personal history of nicotine dependence; X50.0XXA Overexertion from strenuous movement or load, initial encounter
CPT/HCPCS: 36415; 74177; 80053; 81001; 83690; 85025; 99284; A9270; Q9967

== ENCOUNTER 2024-07-17 11:39 | Emergency (ER) | payer SELFPAY ==
--- NOTE | ~2024-07-17 | CT_ITS ---
EXAMINATION: CT abdomen pelvis w con DATE: 07/17/2024 14:05 INDICATION: Left upper quadrant abdominal pain TECHNIQUE: Computed tomography (CT) of the abdomen and pelvis was performed with 100 mL Omnipaque-350 intravenous contrast. Automated exposure control and iterative reconstruction technique were employe d. The dose-length product was 479.02 mGy-cm. COMPARISON: 10/04/2023 FINDINGS: Minimal atelectasis at the posterior sulcus of the left lower lobe. Heart size is normal. No pericard ial or pleural effusion. Partially visualized bilateral breast implants. Postoperative change of prio r Avni-en-Y gastric bypass procedure. There is also been prior cholecystectomy with surgical clips at the gallbladder fossa. Focal hepatic steatosis at the ligamentum teres. A few small capsular calcifi cations at the periphery of the spleen which could be sequela prior trauma or surgery with couple lexa gical clips along the anterior margin of the spleen. Pancreas, bilateral adrenal glands and kidneys a re normal. Decompressed bladder is normal. 1.2 cm right ovarian follicle. Left ovary is unremarkable. Likely section scar along the anterior pelvic wall and the anterior lower of the otherwise normal anteverted uterus. No bowel obstruction. Normal appendix. There are couple sigmoid diverticula without adjacent inflammatory stranding to suggest diverticulitis. No free intraperitoneal gas or fl uid. No pathologically enlarged abdominal or pelvic lymphadenopathy. Mild thoracic lumbar and lower t horacic spondylosis. IMPRESSION: 1. No acute intra-abdominal/pelvic process. 2. Status post cholecystectomy, Avni-en-Y gastric bypass procedure and likely section. Reviewed, dictated and finalized at location A. PER STRIPPER IMPRESSION: 1. No acute intra-abdominal/pelvic process. 2. Status post cholecystectomy, Avni-en-Y gastric bypass procedure and likely c esarean section.
[2024-07-17 11:49] VITALS: BP 110/63; PULSE 84; RESP 16; TEMP 37.1; O2SAT 100
[2024-07-17 12:18] LABS: Add Urine Microscopic? YES; Appearance Urine Clear (Clear); Bacteria Urine None Seen /hpf; Bilirubin Urine Negative (Negative); Blood Urine Negative (Negative); Color Urine Yellow (Yellow); Glucose Urine UA Negative (Negative); Ketones Urine Trace mg/dL (Negative); Leukocyte Esterase Ur Negative LEU/UL (Negative); Nitrate Urine Negative (Negative); Non Pathogenic Casts 0-2; Protein Urine Trace mg/dL (Negative); RBC Urine 0-2 /hpf (0-2); Specific Grav Ur 1.021 (1.001-1.035); Squamous Epithelial Cell Urine Few /hpf (Few); Urobilinogen Urine 0.2 mg/dL (<2.0); WBC Urine 0-5 /hpf (0-3); pH Urine 8.5 (5.0-9.0)
[2024-07-17 13:24] LABS: Basophils Percent Auto 0.6 % (0.2-1.2); Eosinophils Absolute Auto 0.2 K/mm3 (0-0.3); Eosinophils Percent Auto 4.8 % (0-4.4); Hematocrit 32.7 % (37.0-47.0); Hemoglobin 9.9 g/dL (12.0-15.0); Immature Granulocyte Absolute 0.01 K/mm3 (0.00-0.031); Immature Granulocyte Percent A 0.2 % (0-0.5); Lymphocytes Absolute Auto 1.23 K/mm3 (0.9-3.2); Lymphocytes Percent Auto 25.8 % (18.3-44.2); Mean Corpuscular HGB Conc 30.3 g/dl (32-36); Mean Corpuscular Hemoglobin 26.1 pg (26-34); Mean Corpuscular Volume 86.3 fl (80-100); Mean Platelet Volume 10.4 fl (7.4-10.4); Monocytes Absolute Auto 0.5 K/mm3 (0.1-0.6); Monocytes Percent Auto 9.4 % (2.6-8.5); Neutrophils Absolute Auto 2.8 K/mm3 (1.3-6.7); Neutrophils Percent Auto 59.2 % (45.5-73.1); Platelet Count Result 432 k/mm3 (150-375); Red Blood Count 3.79 M/mm3 (4.2-5.4); Red Cell Distribution Width 14.9 % (11.5-14.5); White Blood Count 4.8 K/mm3 (4.5-10.0)
[2024-07-17 13:30] LABS: Alanine Aminotransferase 14 U/L (6-35); Alkaline Phosphatase 66 U/L (38-126); Anion Gap 5 mmol/L (4-12); Aspartate Amino Transferase 26 U/L (14-36); Bilirubin,Total 0.4 mg/dL (0.2-1.3); Blood Urea Nitrogen 13 mg/dL (7-17); Calcium 9.2 mg/dL (8.4-10.2); Carbon Dioxide 27 mmol/L (22-30); Chloride 109 mmol/L (98-107); Estimated CRCL calculation 88 ml/min; Estimated Glomerular Filt Rate > 60; Glucose 100 mg/dL (65-110); Potassium 4.2 mmol/L (3.4-5.0); Sodium 141 mmol/L (137-145)
[2024-07-17 13:31] LABS: Lactic Acid Reflex 0.8 mmol/L (0.7-2.0)
--- NOTE | 2024-07-17 13:45 | ED.GENADULT ---
HPI - General Adult General Chief complaint: Abdominal Pain Stated complaint: abd pain x 3 weeks N/V/D Time Seen by Provider: 07/17/24 12:19 History of Present Illness HPI narrative: 54-year-old female presenting to the emergency department for evaluation for persistent nausea vomiting diarrhea that is been going on for multiple months. Patient states that she does have a prior history of gastric bypass. Patient states due to the persistent nausea and vomiting she has had weight loss over the last few weeks. Patient states she has been taking Tagamet, Tums and Maalox daily. Patient states she has been using Imodium. Related Data Allergies Allergy/AdvReac Type Severity Reaction Status Date / Time ibuprofen (From Motrin) Allergy Unknown Verified 07/17/24 11:53 morphine AdvReac Nausea and Verified 07/17/24 11:53 Vomiting Review of Systems Review of Systems: All systems reviewed & are unremarkable except as noted in HPI and below PMFSH Past Medical History Medical History Obesity Surgical History Surgical History H/O cosmetic surgery Social History Social History Smoking status: Former smoker Gender identity (if verbalized by the patient): Female Exam Narrative: APPEARANCE: Well appearing, no pain, no distress, well-nourished. HEAD: normocephalic, atraumatic. EYES: PERRLA/EOMI, conjunctivae clear. NOSE: Normal no drainage EARS:TMS clear with good light reflex. THROAT: Pharynx clear, no exudate. NECK: Supple. No adenopathy, no masses. RESPIRATORY: Airway patent, respirations nonlabored. Clear to auscultation bilaterally, no rales, rhonchi, wheezing. CARDIOVASCULAR: Regular rate and rhythm without murmurs rubs or gallops. ABDOMINAL: Left upper quadrant abdominal pain MUSCULOSKELETAL: Moves all extremities. Strength/ROM intact, No edema, No calf tenderness. NEURO: Alert. Cranial nerves II through XII intact. Good gait. Good coordination SKIN: Warm, dry. Normal Color Course Vital Signs Vital signs: Vital Signs Temperature 98.7 F 07/17/24 11:49 Pulse Rate 84 07/17/24 11:49 Respiratory Rate 16 07/17/24 11:49 Blood Pressure 110/63 07/17/24 11:49 Pulse Oximetry 100 07/17/24 11:49 Oxygen Delivery Room Air 07/17/24 11:49 Temperature 98.7 F 07/17/24 11:49 Pulse Rate 61 07/17/24 18:32 Respiratory Rate 16 07/17/24 18:32 Blood Pressure 145/82 H 07/17/24 18:32 Pulse Oximetry 97 07/17/24 18:32 Oxygen Delivery Room Air 07/17/24 11:49 Medical Decision Making MDM Narrative Medical decision making narrative: 54-year-old female presented emergency department for evaluation for left upper quadrant abdominal pain. patient was treated for bacterial vaginosis with Flagyl. Patient was also advised to start taking antacid medications. Patient did feel improved with famotidine and Protonix. Differential Diagnosis Differential Diagnosis: colitis, diverticulitis, UTI, BV, Trichomonas, gastritis, esophagitis Vital Signs Vital Signs: Vital Signs Temperature 98.7 F 07/17/24 11:49 Pulse Rate 84 07/17/24 11:49 Respiratory Rate 16 07/17/24 11:49 Blood Pressure 110/63 07/17/24 11:49 Pulse Oximetry 100 07/17/24 11:49 Oxygen Delivery Room Air 07/17/24 11:49 Temperature 98.7 F 07/17/24 11:49 Pulse Rate 61 07/17/24 18:32 Respiratory Rate 16 07/17/24 18:32 Blood Pressure 145/82 H 07/17/24 18:32 Pulse Oximetry 97 07/17/24 18:32 Oxygen Delivery Room Air 07/17/24 11:49 Lab Data Lab results reviewed: Yes I reviewed the patient's lab results. 07/17/24 13:14 07/17/24 13:14 Labs: Lab Results 07/17/24 07/17/24 07/17/24 Range/Units 12:02 13:14 14:27 WBC 4.8 (4.5-10.0) K/mm3 RBC 3.79 L (4.2-5.4) M/mm3 Hgb 9.9 L (12.0-15.0) g/dL Hct 32.7 L (37.0-47.0) % MCV 86.3 (80-100) fl MCH 26.1 (26-34) pg MCHC 30.3 L (32-36) g/dl RDW 14.9 H (11.5-14.5) % Plt Count 432 H (150-375) k/mm3 MPV 10.4 (7.4-10.4) fl Immature Gran % (Auto) 0.2 (0-0.5) % Neut % (Auto) 59.2 (45.5-73.1) % Lymph % (Auto) 25.8 (18.3-44.2) % Yell % (Auto) 9.4 H (2.6-8.5) % Eos % (Auto) 4.8 H (0-4.4) % Baso % (Auto) 0.6 (0.2-1.2) % Lymph # (Auto) 1.23 (0.9-3.2) K/mm3 Yell # (Auto) 0.5 (0.1-0.6) K/mm3 Eos # (Auto) 0.2 (0-0.3) K/mm3 Baso # (Auto) 0.0 (0.0-0.1) K/mm3 Abs Immat Gran (auto) 0.01 (0.00-0.031) K/mm3 Absolute Neuts (auto) 2.8 (1.3-6.7) K/mm3 Absolute Nucleated RBC 0.000 (0.0-0.012) K/mm3 Nucleated RBC % 0.0 (0.0-0.2) % Sodium 141 (137-145) mmol/L Potassium 4.2 (3.4-5.0) mmol/L Chloride 109 H (98-107) mmol/L Carbon Dioxide 27 (22-30) mmol/L Anion Gap 5 (4-12) mmol/L BUN 13 (7-17) mg/dL Creatinine 0.70 (0.7-1.0) mg/dL Estim Creat Clear Calc 88 ml/min Estimated GFR > 60 (59 - ) Glucose 100 (65-110) mg/dL Lactic Acid 0.8 (0.7-2.0) mmol/L Calcium 9.2 (8.4-10.2) mg/dL Total Bilirubin 0.4 (0.2-1.3) mg/dL AST 26 (14-36) U/L ALT 14 (6-35) U/L Alkaline Phosphatase 66 (38-126) U/L Total Protein 7.0 (6.3-8.2) g/dL Albumin 4.0 (3.5-5.1) g/dL Urine Color Yellow (Yellow) Urine Appearance Clear (Clear) Urine pH 8.5 (5.0-9.0) Ur Specific [place] 1.021 (1.001-1.035) Urine Protein Trace (Negative) mg/dL Urine Glucose (UA) Negative (Negative) mg/dL Urine Ketones Trace H (Negative) mg/dL Ur Blood (Man) Negative (Negative) Urine Nitrate Negative (Negative) Urine Bilirubin Negative (Negative) Urine Urobilinogen 0.2 (<2.0) mg/dL Leukocyte Esterase Rfl Negative (Negative) OCHOA/UL Urine RBC 0-2 (0-2) /hpf Urine WBC 0-5 (0-3) /hpf Ur Squamous Epith Cells Few (Few) /hpf Urine Bacteria None seen /hpf Urine Casts 0-2 POC Urine HCG, Qual (Negative) Urine Test Negative T. vaginalis (PCR) Not detected (NOT DETECTE) Bact Vaginosis Panel Positive A (NEGATIVE) 07/17/24 Range/Units 14:32 WBC (4.5-10.0) K/mm3 RBC (4.2-5.4) M/mm3 Hgb (12.0-15.0) g/dL Hct (37.0-47.0) % MCV (80-100) fl MCH (26-34) pg MCHC (32-36) g/dl RDW (11.5-14.5) % Plt Count (150-375) k/mm3 MPV (7.4-10.4) fl Immature Gran % (Auto) (0-0.5) % Neut % (Auto) (45.5-73.1) % Lymph % (Auto) (18.3-44.2) % Yell % (Auto) (2.6-8.5) % Eos % (Auto) (0-4.4) % Baso % (Auto) (0.2-1.2) % Lymph # (Auto) (0.9-3.2) K/mm3 Yell # (Auto) (0.1-0.6) K/mm3 Eos # (Auto) (0-0.3) K/mm3 Baso # (Auto) (0.0-0.1) K/mm3 Abs Immat Gran (auto) (0.00-0.031) K/mm3 Absolute Neuts (auto) (1.3-6.7) K/mm3 Absolute Nucleated RBC (0.0-0.012) K/mm3 Nucleated RBC % (0.0-0.2) % Sodium (137-145) mmol/L Potassium (3.4-5.0) mmol/L Chloride (98-107) mmol/L Carbon Dioxide (22-30) mmol/L Anion Gap (4-12) mmol/L BUN (7-17) mg/dL Creatinine (0.7-1.0) mg/dL Estim Creat Clear Calc ml/min Estimated GFR (59 - ) Glucose (65-110) mg/dL Lactic Acid (0.7-2.0) mmol/L Calcium (8.4-10.2) mg/dL Total Bilirubin (0.2-1.3) mg/dL AST (14-36) U/L ALT (6-35) U/L Alkaline Phosphatase (38-126) U/L Total Protein (6.3-8.2) g/dL Albumin (3.5-5.1) g/dL Urine Color (Yellow) Urine Appearance (Clear) Urine pH (5.0-9.0) Ur Specific [place] (1.001-1.035) Urine Protein (Negative) mg/dL Urine Glucose (UA) (Negative) mg/dL Urine Ketones (Negative) mg/dL Ur Blood (Man) (Negative) Urine Nitrate (Negative) Urine Bilirubin (Negative) Urine Urobilinogen (<2.0) mg/dL Leukocyte Esterase Rfl (Negative) OCHOA/UL Urine RBC (0-2) /hpf Urine WBC (0-3) /hpf Ur Squamous Epith Cells (Few) /hpf Urine Bacteria /hpf Urine Casts POC Urine HCG, Qual Negative (Negative) Urine Test T. vaginalis (PCR) (NOT DETECTE) Bact Vaginosis Panel (NEGATIVE) Discharge Plan Discharge Clinical Impression: Abdominal pain Patient Disposition: Home, Self-Care Condition: Stable Instructions: Antibiotic Form, Abdominal Pain (ED) Additional Instructions: You are being treated for bacterial vaginosis. You are also being started on Prilosec for abdominal discomfort. Take this daily for 14 days. Have close follow-up with GI. Antibiotic as directed until completed. Have close follow-up with her primary care physician. If you have any worsening symptoms please call or return to the emergency department. Patient Language: [place] Islander Prescriptions: New metronidazole 500 mg tablet 500 mg PO Q12H 7 Days Qty: 14 0RF omeprazole 20 mg capsule,delayed release(DR/EC) 20 mg PO DAILY Qty: 14 0RF No Action clindamycin HCl 300 mg capsule 300 mg PO Q8H Qty: 21 0RF ondansetron HCl [Zofran] 4 mg tablet 4 mg PO Q6H PRN (Reason: nausea and vomiting) Qty: 14 0RF clindamycin HCl 300 mg capsule 300 mg PO Q8H Qty: 30 0RF tramadol [Ultram] 50 mg tablet 50 mg PO Q6-8H PRN (Reason: pain) Qty: 20 0RF clindamycin HCl 300 mg capsule 300 mg PO Q8H 7 Days Qty: 21 0RF amoxicillin-pot clavulanate 875-125 mg tablet 1 tablet PO Q12H Qty: 20 0RF fluticasone propionate [Flonase Allergy Relief] 50 mcg/actuation spray,suspension 2 spray intranasal DAILY Qty: 16 0RF Rx Instructions: administer into each nostril cetirizine [24Hour Allergy] 10 mg tablet 10 mg PO DAILY PRN (Reason: allergy symptoms) Qty: 30 0RF methocarbamol 750 mg tablet 750 mg PO TID PRN (Reason: back pain) Qty: 10 0RF Follow-up/Referrals: PHYSICIAN,SEISMIC COMPUTER [Primary Care Provider] - Steven Quijano MD [Physician] - Anirudh Figueroa MD [Physician] - Stand Alone Forms: Work/School Release IP
--- NOTE | 2024-07-17 14:08 | PC.NURSE ---
Addendum entered by Jennifer Baez RN 07/17/24 14:13: Trich urine test also added on. Original Note: Lab called to add on urine test.
[2024-07-17 14:19] LABS: Pregnancy On Board Control Positive; Urine Pregnancy Test Negative
[2024-07-17 14:34] LABS: BEDSIDEPREGUCG Negative (Negative)
[2024-07-17] MEDS: FAMOTIDINE 20 MG/2 ML VIAL IV PUSH (14:41)
[2024-07-17] MEDS: PANTOPRAZOLE SODIUM IV 40 MG VIAL IV PUSH (14:42)
[2024-07-17 14:46] VITALS: BP 114/69; PULSE 61; RESP 16; O2SAT 100
[2024-07-17 17:10] LABS: Trichomonas Vag PCR NOT DETECTED (NOT DETECTE)
--- NOTE | 2024-07-17 17:15 | PC.NURSE ---
Lab called for update on pending STD testing results. No estimated time of completion given. MD Perez updated. Per MD Perez, pt. given food and food per pt. request. No other pt. requests at this time.
[2024-07-17 18:32] VITALS: BP 145/82; PULSE 61; RESP 16; O2SAT 97
[2024-07-18 14:09] LABS: Bacterial Vaginosis POSITIVE (NEGATIVE)
== END 2024-07-17 18:34 | disposition home or self-care (01) ==
PROVIDERS: Emergency Provider Emergency Medicine
DX: R10.12 Left upper quadrant pain (principal); E66.9 Obesity, unspecified; Z68.29 Body mass index [BMI] 29.0-29.9, adult; Z98.84 Bariatric surgery status; Z87.891 Personal history of nicotine dependence
CPT/HCPCS: 36415; 74177; 80053; 81001; 81025; 81513; 83605; 85025; 87661; 96374; 96375; 99284; J2470; Q9967